=== PATIENT | male | born 1935 | race Caucasian/White ===

== ENCOUNTER 2018-07-17 22:45 | Inpatient (IN) | payer MEDICARE ==
[~2018-07-17] VITALS: Ht 172.7 cm; Wt 97.7 kg
[~2018-07-17 22:45] MED LIST: ALLO300 PO; ASPI81CH PO; ATEN25 PO; ATOR10 PO; CHOL10002 PO; DONE10 PO; FAMO20 PO; FEXO180 PO; FISH1000 PO; LOVA40 PO
[2018-07-17] MEDS ORDERED: WARF6 PO (23:01)
[2018-07-17] MEDS ORDERED: AMLO5 PO (23:01)
[2018-07-17] MEDS ORDERED: LOSA50 PO (23:03)
[2018-07-17] MEDS ORDERED: BREO ELLIPTA 11 EACH INH (23:04)
[2018-07-17 23:11] LABS: Hematocrit 47.3 % (37.0-53.0); Hemoglobin 15.6 g/dL (13.5-17.5); Mean Corpuscular HGB 29.8 pg (26.0-34.0); Mean Corpuscular Volume 90 fL (80-100); Platelet Count 261 K/mm3 (150-400); RDW Coefficient Variation 14.6 % (11.7-14.2); RDW Standard Deviation 48.3 fL (35.1-46.3); Red Blood Cell Count 5.23 M/mm3 (4.30-5.90); White Blood Cell Count 33.72 K/mm3 (4.00-11.30)
[2018-07-17 23:27] LABS: International Normalized Ratio 1.99; Prothrombin Time Results 19.7 Sec (9.7-11.5)
[2018-07-17 23:30] LABS: Albumin, Blood 3.4 g/dL (3.4-5.0); Albumin/Globulin Ratio 0.8 (0.8-1.8); Bilirubin, Total 2.9 mg/dL (0.1-1.0); Bun/Creatinine Ratio 19.9 (12.0-20.0); Calcium, Blood 8.7 mg/dL (8.5-10.1); Creatinine, Blood 1.56 mg/dL (0.60-1.20); Potassium, Blood 3.6 mmol/L (3.5-5.5); Total Protein, Blood 7.4 g/dL (6.4-8.2)
[2018-07-17 23:31] LABS: BAND PERCENT MAN 14 % (0-8); BASOPHILS ABSOLUTE MAN 0.33 K/mm3 (0.00-0.23); BASOPHILS PERCENT MAN 1 % (0-2); EOSINOPHILS PERCENT MAN 0 % (0-6); LYMPHOCYTES ABSOLUTE MAN 2.36 K/mm3 (0.84-5.20); LYMPHOCYTES PERCENT MAN 7 % (21-46); MONOCYTES ABSOLUTE MAN 1.68 K/mm3 (0.16-1.47); MONOCYTES PERCENT MAN 5 % (4-13); NEUTROPHILS ABSOLUTE MAN 29.33 K/mm3 (1.96-9.15); SEG NEUTROPHILS PERCENT MAN 73 % (41-73); TOTAL CELLS COUNTED 100
[2018-07-18] MEDS ORDERED: NITR.4SL SL (01:15)
[2018-07-18] MEDS ORDERED: CENTRUM SILVER1 EAC2 PO (01:16)
[2018-07-18 02:07] LABS: Influenza A Negative (NEGATIVE); Influenza B Negative (NEGATIVE)
[2018-07-18 04:11] LABS: Hematocrit 42.2 % (37.0-53.0); Hemoglobin 13.8 g/dL (13.5-17.5); Mean Corpuscular HGB 29.9 pg (26.0-34.0); Mean Corpuscular HGB Conc 32.7 g/dL (31.5-36.5); Mean Corpuscular Volume 92 fL (80-100); Mean Platelet Volume 11.9 fL (9.1-12.4); Platelet Count 229 K/mm3 (150-400); RDW Coefficient Variation 14.6 % (11.7-14.2); Red Blood Cell Count 4.61 M/mm3 (4.30-5.90); White Blood Cell Count 29.78 K/mm3 (4.00-11.30)
[2018-07-18 04:24] LABS: International Normalized Ratio 2.06; Prothrombin Time Results 20.4 Sec (9.7-11.5)
[2018-07-18 04:39] LABS: Albumin, Blood 2.7 g/dL (3.4-5.0); Albumin/Globulin Ratio 0.7 (0.8-1.8); Bilirubin, Total 2.4 mg/dL (0.1-1.0); Bun/Creatinine Ratio 21.1 (12.0-20.0); Calcium, Blood 7.7 mg/dL (8.5-10.1); Creatinine, Blood 1.42 mg/dL (0.60-1.20); Globulin, Blood 3.7 g/dL (2.2-4.0); Potassium, Blood 3.5 mmol/L (3.5-5.5); Total Protein, Blood 6.4 g/dL (6.4-8.2)
[2018-07-18 15:40] LABS: Source, Urine Clean Catch
[2018-07-18 17:34] LABS: Appearance, Urine Clear (Clear); Bilirubin, Urine Neg (Neg); Blood, Urine Neg (Neg); Color, Urine Yellow (P-Yellow); Glucose Qualitative, Urine Neg (Neg); Ketones, Urine Neg (Neg); Leukocyte Esterase, Urine Neg (Neg); Nitrite, Urine Neg (Neg); Protein, Urine 3+ (Neg); Urobilinogen, Urine NORM (Normal)
[2018-07-18 17:45] LABS: Bacteria Rare /hpf; Red Blood Cells, Urine Not Seen /hpf (0-2); Squamous Epithelial Cells Rare /hpf (Few); White Blood Cells, Urine 0-2 /hpf (0-5)
[2018-07-19 04:56] LABS: BASOPHILS ABSOLUTE AUTO 0.04 K/mm3 (0.00-0.23); BASOPHILS PERCENT AUTO 0 % (0-2); EOSINOPHILS PERCENT AUTO 0 % (0-6); Hematocrit 42.2 % (37.0-53.0); Hemoglobin 13.7 g/dL (13.5-17.5); IMMATURE GRAN ABSOLUTE AUTO 0.29 K/mm3 (0.00-0.10); IMMATURE GRAN PERCENT AUTO 1 % (0-1); LYMPHOCYTES ABSOLUTE AUTO 1.02 K/mm3 (0.84-5.20); LYMPHOCYTES PERCENT AUTO 4 % (21-46); MONOCYTES ABSOLUTE AUTO 0.66 K/mm3 (0.16-1.47); MONOCYTES PERCENT AUTO 3 % (4-13); Mean Corpuscular HGB 29.6 pg (26.0-34.0); Mean Corpuscular HGB Conc 32.5 g/dL (31.5-36.5); Mean Corpuscular Volume 91 fL (80-100); Mean Platelet Volume 11.4 fL (9.1-12.4); NEUTROPHILS ABSOLUTE AUTO 21.32 K/mm3 (1.96-9.15); NEUTROPHILS PERCENT AUTO 91 % (41-73); Platelet Count 204 K/mm3 (150-400); RDW Coefficient Variation 14.7 % (11.7-14.2); RDW Standard Deviation 49.5 fL (35.1-46.3); Red Blood Cell Count 4.63 M/mm3 (4.30-5.90); White Blood Cell Count 23.33 K/mm3 (4.00-11.30)
[2018-07-19 05:06] LABS: International Normalized Ratio 1.73; Prothrombin Time Results 17.3 Sec (9.7-11.5)
[2018-07-19 05:23] LABS: Alanine Aminotransfer (ALT/SGP 24 U/L (12-78); Albumin, Blood 2.8 g/dL (3.4-5.0); Albumin/Globulin Ratio 0.7 (0.8-1.8); Alk Phos 62 U/L (50-136); Anion Gap 9 mmol/L (6-16); Aspartate Aminotrans (AST/SGOT 25 U/L (12-37); Blood Urea Nitrogen 32 mg/dL (8-24); Bun/Creatinine Ratio 26.2 (12.0-20.0); CO2, Blood 20 mmol/L (21-32); Calcium, Blood 8.6 mg/dL (8.5-10.1); Chloride, Blood 113 mmol/L (98-108); Creatinine, Blood 1.22 mg/dL (0.60-1.20); Glomerular Filtration Rate >60 (60-); Glucose, Blood 143 mg/dL (70-99); Sodium, Blood 142 mmol/L (136-145); Total Protein, Blood 6.8 g/dL (6.4-8.2)
[2018-07-19 11:00] LABS: Alanine Aminotransfer (ALT/SGP 26 U/L (12-78); Albumin, Blood 2.7 g/dL (3.4-5.0); Albumin/Globulin Ratio 0.6 (0.8-1.8); Alk Phos 55 U/L (50-136); Anion Gap 10 mmol/L (6-16); Aspartate Aminotrans (AST/SGOT 26 U/L (12-37); Bilirubin, Total 0.7 mg/dL (0.1-1.0); Blood Urea Nitrogen 32 mg/dL (8-24); Bun/Creatinine Ratio 29.6 (12.0-20.0); CO2, Blood 20 mmol/L (21-32); Calcium, Blood 9.1 mg/dL (8.5-10.1); Chloride, Blood 111 mmol/L (98-108); Creatinine, Blood 1.08 mg/dL (0.60-1.20); Globulin, Blood 4.2 g/dL (2.2-4.0); Glomerular Filtration Rate >60 (60-); Glucose, Blood 177 mg/dL (70-99); Potassium, Blood 3.8 mmol/L (3.5-5.5); Sodium, Blood 141 mmol/L (136-145); Total Protein, Blood 6.9 g/dL (6.4-8.2)
[2018-07-20 05:27] LABS: BASOPHILS ABSOLUTE AUTO 0.03 K/mm3 (0.00-0.23); BASOPHILS PERCENT AUTO 0 % (0-2); EOSINOPHILS ABSOLUTE AUTO 0.03 K/mm3 (0.00-0.68); EOSINOPHILS PERCENT AUTO 0 % (0-6); Hematocrit 42.5 % (37.0-53.0); Hemoglobin 13.9 g/dL (13.5-17.5); IMMATURE GRAN PERCENT AUTO 1 % (0-1); LYMPHOCYTES ABSOLUTE AUTO 1.59 K/mm3 (0.84-5.20); LYMPHOCYTES PERCENT AUTO 9 % (21-46); MONOCYTES ABSOLUTE AUTO 0.67 K/mm3 (0.16-1.47); MONOCYTES PERCENT AUTO 4 % (4-13); Mean Corpuscular HGB 30.2 pg (26.0-34.0); Mean Corpuscular HGB Conc 32.7 g/dL (31.5-36.5); Mean Corpuscular Volume 92 fL (80-100); Mean Platelet Volume 12.1 fL (9.1-12.4); NEUTROPHILS ABSOLUTE AUTO 14.89 K/mm3 (1.96-9.15); NEUTROPHILS PERCENT AUTO 86 % (41-73); Platelet Count 254 K/mm3 (150-400); RDW Coefficient Variation 14.8 % (11.7-14.2); RDW Standard Deviation 50.6 fL (35.1-46.3); White Blood Cell Count 17.41 K/mm3 (4.00-11.30)
[2018-07-20 05:39] LABS: International Normalized Ratio 1.8; Prothrombin Time Results 17.9 Sec (9.7-11.5)
[2018-07-20] MEDS ORDERED: LEVO750 PO (11:59)
[2018-07-20] MEDS ORDERED: GUAIFENESIN ER600 MG PO (12:00)
[2018-07-20] MEDS ORDERED: WARF3 PO (12:13)
== END 2018-07-20 12:25 | disposition home or self-care (01) | DRG 871 ==
LOC: ER 22:45 → PCU 07-18 00:12 → MEDS 07-18 00:36 → PCU 07-18 00:42 → MEDS 07-19 23:08 → ENPENDDIS 07-20 10:00 → MEDS 07-20 12:25
PROVIDERS: Emergency Medicine; Internal Medicine
DX: A41.9 Sepsis, unspecified organism (principal); J18.9 Pneumonia, unspecified organism; N17.9 Acute kidney failure, unspecified; J44.1 Chronic obstructive pulmonary disease with (acute) exacerbation; J44.0 Chronic obstructive pulmonary disease with (acute) lower respiratory infection; R65.20 Severe sepsis without septic shock; F03.90 Unspecified dementia, unspecified severity, without behavioral disturbance, psychotic disturbance, mood disturbance, and anxiety; I25.10 Atherosclerotic heart disease of native coronary artery without angina pectoris; I12.9 Hypertensive chronic kidney disease with stage 1 through stage 4 chronic kidney disease, or unspecified chronic kidney disease; N18.9 Chronic kidney disease, unspecified; K21.9 Gastro-esophageal reflux disease without esophagitis; E78.5 Hyperlipidemia, unspecified; G47.30 Sleep apnea, unspecified; I48.2 Chronic atrial fibrillation; Z66 Do not resuscitate; Z95.1 Presence of aortocoronary bypass graft; Z79.01 Long term (current) use of anticoagulants; Z79.82 Long term (current) use of aspirin; Z79.899 Other long term (current) drug therapy; Z88.0 Allergy status to penicillin; Z87.891 Personal history of nicotine dependence
CPT/HCPCS: 36415; 71046; 80053; 81001; 83605; 85025; 85027; 85610; 85730; 87070; 87205; 87804; 92610; 93005; 93010; 94640; 94762; 96365; 97116; 97161; 99285-25; G8978; G8979; G8980; G8996; G8997; G8998; J0696; J1650; J1956; J2930; J7030; J7050

== ENCOUNTER 2018-11-04 20:29 | Emergency (ER) | payer MEDICARE ==
[~2018-11-04] VITALS: Ht 172.7 cm; Wt 90.7 kg
[~2018-11-04 20:29] MED LIST changes: +AMLO5 PO; +BREO ELLIPTA 11 EACH INH; +CENTRUM SILVER1 EAC2 PO; +GUAIFENESIN ER600 MG PO; +LEVO750 PO; +LOSA50 PO; +NITR.4SL SL; +WARF3 PO; +WARF6 PO
[2018-11-04 21:06] LABS: BASOPHILS ABSOLUTE AUTO 0.04 K/mm3 (0.00-0.23); BASOPHILS PERCENT AUTO 1 % (0-2); EOSINOPHILS PERCENT AUTO 0 % (0-6); Hematocrit 51.5 % (37.0-53.0); Hemoglobin 16.5 g/dL (13.5-17.5); IMMATURE GRAN PERCENT AUTO 1 % (0-1); LYMPHOCYTES ABSOLUTE AUTO 1.25 K/mm3 (0.84-5.20); LYMPHOCYTES PERCENT AUTO 15 % (21-46); MONOCYTES ABSOLUTE AUTO 0.74 K/mm3 (0.16-1.47); MONOCYTES PERCENT AUTO 9 % (4-13); Mean Corpuscular HGB 29.6 pg (26.0-34.0); Mean Corpuscular Volume 92 fL (80-100); Mean Platelet Volume 10.7 fL (9.1-12.4); NEUTROPHILS ABSOLUTE AUTO 6.46 K/mm3 (1.96-9.15); NEUTROPHILS PERCENT AUTO 75 % (41-73); Platelet Count 258 K/mm3 (150-400); RDW Coefficient Variation 14.6 % (11.7-14.2); RDW Standard Deviation 50.3 fL (35.1-46.3); Red Blood Cell Count 5.58 M/mm3 (4.30-5.90); White Blood Cell Count 8.59 K/mm3 (4.00-11.30)
[2018-11-04 21:19] LABS: International Normalized Ratio 1.34; Prothrombin Time Results 13.6 Sec (9.7-11.5)
[2018-11-04 21:29] LABS: Albumin, Blood 3.6 g/dL (3.4-5.0); Albumin/Globulin Ratio 0.8 (0.8-1.8); Bilirubin, Total 1.1 mg/dL (0.1-1.0); Bun/Creatinine Ratio 15.6 (12.0-20.0); Calcium, Blood 8.2 mg/dL (8.5-10.1); Creatinine, Blood 1.35 mg/dL (0.60-1.20); Globulin, Blood 4.4 g/dL (2.2-4.0); Potassium, Blood 3.6 mmol/L (3.5-5.5)
[2018-11-05 00:13] LABS: Appearance, Urine Clear (Clear); Bilirubin, Urine Neg (Neg); Blood, Urine 1+ (Neg); Color, Urine Amber (P-Yellow); Glucose Qualitative, Urine Neg (Neg); Ketones, Urine Neg (Neg); Leukocyte Esterase, Urine Neg (Neg); Nitrite, Urine Neg (Neg); Protein, Urine 4+ (Neg); Source, Urine Clean Catch; Urobilinogen, Urine NORM (Normal)
[2018-11-05 00:19] LABS: Red Blood Cells, Urine 0-2 /hpf (0-2)
[2018-11-05 00:20] LABS: Amorphous Light (0-Heavy); Bacteria Few /hpf; Mucus Light (0-Heavy); Squamous Epithelial Cells Rare /hpf (Few)
[2018-11-05] MEDS ORDERED: Zithromax250 MG PO (00:23)
== END 2018-11-05 00:46 | disposition home or self-care (01) ==
LOC: ER 20:29
PROVIDERS: Emergency Medicine
DX: J40 Bronchitis, not specified as acute or chronic (principal); N28.9 Disorder of kidney and ureter, unspecified; W19.XXXA Unspecified fall, initial encounter; Z88.0 Allergy status to penicillin; Z79.899 Other long term (current) drug therapy; Z79.82 Long term (current) use of aspirin; Z79.01 Long term (current) use of anticoagulants; J45.909 Unspecified asthma, uncomplicated; Z95.1 Presence of aortocoronary bypass graft
CPT/HCPCS: 36415; 70450; 71046; 80053; 81001; 85025; 85610; 93005; 93010; 96360; 99284-25; J7030

== ENCOUNTER 2018-12-08 17:15 | Emergency (ER) | payer MEDICARE ==
[~2018-12-08] VITALS: Ht 172.7 cm; Wt 97.1 kg
[~2018-12-08 17:15] MED LIST changes: +Zithromax250 MG PO
[2018-12-08 18:00] LABS: BASOPHILS ABSOLUTE AUTO 0.08 K/mm3 (0.00-0.23); BASOPHILS PERCENT AUTO 1 % (0-2); EOSINOPHILS ABSOLUTE AUTO 0.13 K/mm3 (0.00-0.68); EOSINOPHILS PERCENT AUTO 1 % (0-6); Hematocrit 44.2 % (37.0-53.0); Hemoglobin 14.4 g/dL (13.5-17.5); IMMATURE GRAN ABSOLUTE AUTO 0.11 K/mm3 (0.00-0.10); IMMATURE GRAN PERCENT AUTO 1 % (0-1); LYMPHOCYTES ABSOLUTE AUTO 2.03 K/mm3 (0.84-5.20); LYMPHOCYTES PERCENT AUTO 17 % (21-46); MONOCYTES PERCENT AUTO 12 % (4-13); Mean Corpuscular HGB 29.1 pg (26.0-34.0); Mean Corpuscular HGB Conc 32.6 g/dL (31.5-36.5); Mean Corpuscular Volume 89 fL (80-100); Mean Platelet Volume 11.4 fL (9.1-12.4); NEUTROPHILS ABSOLUTE AUTO 8.03 K/mm3 (1.96-9.15); NEUTROPHILS PERCENT AUTO 68 % (41-73); Platelet Count 252 K/mm3 (150-400); RDW Coefficient Variation 14.7 % (11.7-14.2); Red Blood Cell Count 4.95 M/mm3 (4.30-5.90); White Blood Cell Count 11.78 K/mm3 (4.00-11.30)
[2018-12-08 18:14] LABS: Albumin, Blood 3.1 g/dL (3.4-5.0); Albumin/Globulin Ratio 0.8 (0.8-1.8); Bilirubin, Total 1.2 mg/dL (0.1-1.0); Bun/Creatinine Ratio 17.3 (12.0-20.0); Calcium, Blood 8.4 mg/dL (8.5-10.1); Creatinine, Blood 1.27 mg/dL (0.60-1.20); Globulin, Blood 3.9 g/dL (2.2-4.0); Potassium, Blood 3.6 mmol/L (3.5-5.5); Troponin I 0.042 ng/mL (0.000-0.040)
[2018-12-08 18:26] LABS: International Normalized Ratio 1.37; Prothrombin Time Results 14.1 Sec (9.7-11.5)
[2018-12-08 18:44] LABS: Influenza A Negative (NEGATIVE); Influenza B Negative (NEGATIVE)
[2018-12-08 18:57] LABS: Source, Urine Clean Catch
[2018-12-08 19:02] LABS: Bilirubin, Urine Neg (Neg); Blood, Urine 1+ (Neg); Glucose Qualitative, Urine Neg (Neg); Ketones, Urine Neg (Neg); Leukocyte Esterase, Urine Neg (Neg); Nitrite, Urine Neg (Neg); Protein, Urine 3+ (Neg); Urobilinogen, Urine NORM (Normal)
[2018-12-08 19:10] LABS: Appearance, Urine Clear (Clear); Color, Urine Yellow (P-Yellow)
[2018-12-08 19:11] LABS: Bacteria Mod /hpf; Mucus Light (0-Heavy); Red Blood Cells, Urine 0-2 /hpf (0-2); Squamous Epithelial Cells Not Seen /hpf (Few)
[2018-12-08] MEDS ORDERED: Zithromax250 MG PO (22:02)
== END 2018-12-08 22:22 | disposition home or self-care (01) ==
LOC: ER 17:15
PROVIDERS: Emergency Medicine
DX: J44.1 Chronic obstructive pulmonary disease with (acute) exacerbation (principal); Z88.0 Allergy status to penicillin; Z79.899 Other long term (current) drug therapy; Z79.82 Long term (current) use of aspirin; Z79.01 Long term (current) use of anticoagulants; Z87.891 Personal history of nicotine dependence
CPT/HCPCS: 70450; 71046; 80053; 81001; 84484; 85025; 85610; 87086; 87804; 93005; 93010; 94640; 99285-25

== ENCOUNTER → 2018-12-11 | Outpatient (CLI) | payer MEDICARE | END | disposition home or self-care (01) | LOC: LAB 08:00 → LAB SHORT 08:00 | DX: R05 Cough (principal) | CPT/HCPCS: 87070; 87205 ==

== ENCOUNTER → 2021-11-01 | Outpatient (CLI) | payer MEDICARE ==
[2021-11-01 08:55] LABS: Source, Urine Clean Catch
[2021-11-01 13:07] LABS: Appearance, Urine Clear (Clear); Bilirubin, Urine Neg (Neg); Blood, Urine Neg (Neg); Color, Urine Yellow (P-Yellow); Glucose Qualitative, Urine Neg (Neg); Ketones, Urine Neg (Neg); Leukocyte Esterase, Urine Neg (Neg); Nitrite, Urine Neg (Neg); Protein, Urine 3+ (Neg); Specific Gravity, Urine 1.015 (1.003-1.022); Urobilinogen, Urine NORM (Normal)
[2021-11-01 13:38] LABS: Bacteria Few /hpf; Red Blood Cells, Urine 0-2 /hpf (0-2); Squamous Epithelial Cells Few /hpf (Few); White Blood Cells, Urine 0-2 /hpf (0-5)
== END | disposition home or self-care (01) ==
LOC: LAB SHORT 08:52 → LAB 08:52
PROVIDERS: Internal Medicine
DX: N39.46 Mixed incontinence (principal)
CPT/HCPCS: 81001

== ENCOUNTER 2022-03-02 21:50 | Emergency (ER) | payer MEDICARE ==
[~2022-03-02] VITALS: Ht 172.7 cm; Wt 77.1 kg
[2022-03-02 22:22] LABS: Hematocrit 42.5 % (37.0-53.0); Mean Corpuscular HGB Conc 32.9 g/dL (31.5-36.5); Mean Corpuscular Volume 91 fL (80-100); Platelet Count 434 K/mm3 (150-400); RDW Coefficient Variation 13.8 % (11.7-14.2); RDW Standard Deviation 46.5 fL (35.1-46.3); Red Blood Cell Count 4.66 M/mm3 (4.30-5.90); White Blood Cell Count 13.97 K/mm3 (4.00-11.30)
[2022-03-02 22:43] LABS: Albumin, Blood 2.8 g/dL (3.4-5.0); Albumin/Globulin Ratio 0.6 (0.8-1.8); Bilirubin, Total 1.4 mg/dL (0.1-1.0); Bun/Creatinine Ratio 20.2 (12.0-20.0); Creatinine, Blood 1.29 mg/dL (0.60-1.20); Globulin, Blood 4.4 g/dL (2.2-4.0); Potassium, Blood 3.9 mmol/L (3.5-5.5); Total Protein, Blood 7.2 g/dL (6.4-8.2)
[2022-03-02 22:47] LABS: BAND PERCENT MAN 10 % (0-8); BASOPHILS PERCENT MAN 0 % (0-2); EOSINOPHILS ABSOLUTE MAN 0.27 K/mm3 (0.00-0.68); EOSINOPHILS PERCENT MAN 2 % (0-6); LYMPHOCYTES ABSOLUTE MAN 1.67 K/mm3 (0.84-5.20); LYMPHOCYTES PERCENT MAN 12 % (21-46); METAMYELOCYTE ABSOLUTE MAN 0.13 K/mm3 (0.00-0.00); METAMYELOCYTE PERCENT MAN 1 % (0-0); MONOCYTES ABSOLUTE MAN 1.25 K/mm3 (0.16-1.47); MONOCYTES PERCENT MAN 9 % (4-13); MYELOCYTE ABSOLUTE MAN 0.27 K/mm3 (0.00-0.00); MYELOCYTE PERCENT MAN 2 % (0-0); NEUTROPHILS ABSOLUTE MAN 10.33 K/mm3 (1.96-9.15); SEG NEUTROPHILS PERCENT MAN 64 % (41-73); TOTAL CELLS COUNTED 100
[2022-03-02 23:43] LABS: Influenza A, PCR NEGATIVE (NEGATIVE); Influenza B, PCR NEGATIVE (NEGATIVE); Resp Syncytial Virus, PCR NEGATIVE (NEGATIVE); SARS-Cov-2 (COVID-19) PCR, MMC NEGATIVE (NEGATIVE)
[2022-03-03] MEDS ORDERED: DELTASONE20 MG PO (00:04)
[2022-03-03] MEDS ORDERED: Zithromax250 MG PO (00:04)
== END 2022-03-03 00:39 | disposition home or self-care (01) ==
LOC: ER 21:50
PROVIDERS: Emergency Medicine
DX: J44.9 Chronic obstructive pulmonary disease, unspecified (principal); Z20.822 Contact with and (suspected) exposure to COVID-19; Z88.0 Allergy status to penicillin; Z79.899 Other long term (current) drug therapy; Z79.82 Long term (current) use of aspirin; Z79.01 Long term (current) use of anticoagulants; Z95.1 Presence of aortocoronary bypass graft
CPT/HCPCS: 0241U; 36415; 71045; 80053; 85025; 93005; 93010; A9270; J7512

== ENCOUNTER 2022-06-03 10:09 | Inpatient (IN) | payer MEDICARE ==
[~2022-06-03] VITALS: Ht 177.8 cm; Wt 100.9 kg
[~2022-06-03 10:09] MED LIST changes: +DELTASONE20 MG PO
[2022-06-03 11:52] LABS: International Normalized Ratio 2.29; Prothrombin Time Results 22.8 Sec (9.7-11.5)
[2022-06-03 14:03] LABS: BASOPHILS ABSOLUTE AUTO 0.11 K/mm3 (0.00-0.23); BASOPHILS PERCENT AUTO 1 % (0-2); EOSINOPHILS ABSOLUTE AUTO 0.12 K/mm3 (0.00-0.68); EOSINOPHILS PERCENT AUTO 1 % (0-6); Hematocrit 42.8 % (37.0-53.0); Hemoglobin 13.9 g/dL (13.5-17.5); IMMATURE GRAN ABSOLUTE AUTO 0.14 K/mm3 (0.00-0.10); IMMATURE GRAN PERCENT AUTO 1 % (0-1); LYMPHOCYTES ABSOLUTE AUTO 2.08 K/mm3 (0.84-5.20); LYMPHOCYTES PERCENT AUTO 13 % (21-46); MONOCYTES ABSOLUTE AUTO 1.24 K/mm3 (0.16-1.47); MONOCYTES PERCENT AUTO 8 % (4-13); Mean Corpuscular HGB 30.5 pg (26.0-34.0); Mean Corpuscular HGB Conc 32.5 g/dL (31.5-36.5); Mean Corpuscular Volume 94 fL (80-100); NEUTROPHILS PERCENT AUTO 77 % (41-73); Platelet Count 334 K/mm3 (150-400); RDW Coefficient Variation 14.6 % (11.7-14.2); RDW Standard Deviation 50.4 fL (35.1-46.3); Red Blood Cell Count 4.56 M/mm3 (4.30-5.90); White Blood Cell Count 15.79 K/mm3 (4.00-11.30)
[2022-06-03 14:15] LABS: Albumin, Blood 3.7 g/dL (3.4-5.0); Bilirubin, Total 1.7 mg/dL (0.1-1.0); Calcium, Blood 9.6 mg/dL (8.5-10.1); Creatinine, Blood 1.07 mg/dL (0.60-1.20); Globulin, Blood 3.7 g/dL (2.2-4.0); Potassium, Blood 4.6 mmol/L (3.5-5.5); Total Protein, Blood 7.4 g/dL (6.4-8.2)
[2022-06-03 14:27] LABS: Source, Urine Straight Cath
[2022-06-03 14:30] LABS: Appearance, Urine Clear (Clear); Bilirubin, Urine Neg (Neg); Blood, Urine Neg (Neg); Color, Urine Amber (P-Yellow); Glucose Qualitative, Urine Neg (Neg); Ketones, Urine Neg (Neg); Leukocyte Esterase, Urine Neg (Neg); Nitrite, Urine Neg (Neg); Protein, Urine 3+ (Neg); Urobilinogen, Urine NORM (Normal)
[2022-06-03 14:36] LABS: Red Blood Cells, Urine 0-2 /hpf (0-2); White Blood Cells, Urine 0-2 /hpf (0-5)
[2022-06-03 14:37] LABS: Bacteria Rare /hpf; Renal Epithelial Rare /hpf (0-Rare); Squamous Epithelial Cells Not Seen /hpf (Few)
[2022-06-03 15:01] LABS: Influenza A, PCR NEGATIVE (NEGATIVE); Influenza B, PCR NEGATIVE (NEGATIVE); Resp Syncytial Virus, PCR NEGATIVE (NEGATIVE); SARS-Cov-2 (COVID-19) PCR, MMC NEGATIVE (NEGATIVE)
[2022-06-03] MEDS ORDERED: MEMA5TAB PO (18:16)
--- NOTE | 2022-06-03 19:51 | NUR ---
END OF SHIFT SUMMARY: PATIENT ARRIVED TO UNIT VIA GURNEY AT 1730. TWO OF PATIENT'S DAUGHTERS WERE AT BEDSIDE. PATIENT ALERT TO SELF AND FAMILY ONLY. PATIENT IS [place]. PATIENT HAS A SHORT ATTENTION SPAN. PATIENT ABLE TO FOLLOW MOST SIMPLE COMMANDS. PATIENT OCCASIONALLY MOVING HIS ARMS/HANDS THOUGH GRASPING IN THE AIR FOR SOMETHING. PATIENT DENIES VISUAL HALLUCINATIONS. PATIENT'S DAUGHTER REPORTS THAT HE DID HAVE SOME VISUAL HALLUCINATIONS YESTERDAY AT HOME. PATIENT HAS A DRY COUGH AND AUDIBLE COARSENESS OF HIS LUNGS. PATIENT STABLE ON RA. PATIENT ABLE TO SWALLOW WITHOUT ANY APPARENT DIFFICULTIES. PATIENT'S DAUGHTERS REPORT THAT THE PATIENT STARTED DEMONSTRATING COGNITIVE DECLINE OR INCREASED CONFUSION 2 WEEKS AGO, BUT THAT HIS CONFUSION TODAY IS CLEARLY THE WORST IT HAS BEEN.
--- NOTE | 2022-06-04 00:21 | NUR ---
AGITATED/AGRESSIVE *LATE ENTRY* AROUND 2021 ON 06/03/22 THIS NURSE AND SECURITY SYSTEM ENGINEER TRINA Gomez, WENT INTO PT RM TO GET VITALS & GIVE MEDS. AT FIRST PT COOPERATIVE IN ALLOWING VITALS, BUT THEN BECAME AGRESSIVE, CURSING, YELLING, AGITATED TOWARDS MYSELF AND SECURITY SYSTEM ENGINEER, TELLING US TO LEAVE & "GET OFF MY PROPERTY" & SWINGING ARMS TRYING TO HIT US BOTH. PT ALSO TRYING TO PULL OUT IV & PULLING AT TELE, ABLE TO WRAP IV c COBAN TO SECURE. PT HALLUCINATING STATING THAT THIS NURSE SHOULD JUMP IN THE RIVER @THE END OF HIS BED. ATTEMPTED TO GIVE PO SEROQUEL & PT REFUSED ANY PO MEDS. ANOTHER NURSE CHRISTOFER Vazquez ATTEMPTED TO GIVE PO SEROQUEL & PT SPIT MEDICATION OUT. INFORMED [id number] Vazquez OF PTS BEHAVIOR & RISK OF PULLING OUT SAMUEL, IV & HE ORDERED WRIST, GALILEO RESTRAINTS & IM ZYPREXA. INFORMED DAUGHTER OF PTS BEHAVIOUR. WILL CONT TO MONITOR.
[2022-06-04 05:16] LABS: BASOPHILS ABSOLUTE AUTO 0.11 K/mm3 (0.00-0.23); BASOPHILS PERCENT AUTO 1 % (0-2); EOSINOPHILS PERCENT AUTO 2 % (0-6); Hematocrit 39.7 % (37.0-53.0); Hemoglobin 12.7 g/dL (13.5-17.5); IMMATURE GRAN PERCENT AUTO 1 % (0-1); LYMPHOCYTES ABSOLUTE AUTO 2.06 K/mm3 (0.84-5.20); LYMPHOCYTES PERCENT AUTO 16 % (21-46); MONOCYTES ABSOLUTE AUTO 1.25 K/mm3 (0.16-1.47); MONOCYTES PERCENT AUTO 10 % (4-13); Mean Corpuscular HGB 30.5 pg (26.0-34.0); Mean Corpuscular Volume 95 fL (80-100); Mean Platelet Volume 10.9 fL (9.1-12.4); NEUTROPHILS ABSOLUTE AUTO 9.31 K/mm3 (1.96-9.15); NEUTROPHILS PERCENT AUTO 72 % (41-73); Platelet Count 306 K/mm3 (150-400); RDW Coefficient Variation 14.8 % (11.7-14.2); RDW Standard Deviation 51.5 fL (35.1-46.3); Red Blood Cell Count 4.16 M/mm3 (4.30-5.90); White Blood Cell Count 13.03 K/mm3 (4.00-11.30)
[2022-06-04 05:30] LABS: International Normalized Ratio 2.55; Prothrombin Time Results 25.2 Sec (9.7-11.5)
[2022-06-04 05:50] LABS: Albumin, Blood 3.1 g/dL (3.4-5.0); Albumin/Globulin Ratio 0.9 (0.8-1.8); Bilirubin, Total 1.4 mg/dL (0.1-1.0); Bun/Creatinine Ratio 22.8 (12.0-20.0); Calcium, Blood 8.9 mg/dL (8.5-10.1); Creatinine, Blood 1.14 mg/dL (0.60-1.20); Globulin, Blood 3.6 g/dL (2.2-4.0); Potassium, Blood 4.1 mmol/L (3.5-5.5); Total Protein, Blood 6.7 g/dL (6.4-8.2)
--- NOTE | 2022-06-04 06:24 | NUR ---
SHIFT SUMMARY AOXSELF ONLY. NONCOOPERATIVE, AGITATED, UNABLE TO FOLLOW DIRECTIONS, AGRESSIVE TOWARDS STAFF WHEN ATTEMPTING CARE. TRYS TO HIT, YELLS AT STAFF TO "GET OUT OF HERE" THINKS HE IS AT HOME. PT CALM & RELAXED WHEN NOONE IN RM OR NEEDING TO PROVIDE CARE. VSS. TELE AFIB c PVC HR 66. SAMUEL PATENT & DRAINING DARK YELLOW URINE. MEPILEX PLACED TO R FOREARM. GALILEO & WRIST RESTRAINTS ON FOR PT & STAFF SAFETY. CALL LIGHT & BED ALARM IN PLACE.
--- NOTE | 2022-06-04 11:17 | NUR ---
SWALLOWING: PATIENT IS HAVING DIFFICULTY FORMING WORDS AT TIMES THIS MORNING. HE HAS A WET COUGH. PATIENT HAD SOME COUGHING WITH SMALL BITES OF BREAKFAST. DISCUSSED WITH DR. VALDEZ. MORNING MEDICATIONS HELD AND SPEECH EVALUATION ORDERED.
--- NOTE | 2022-06-04 20:06 | NUR ---
END OF SHIFT SUMMARY: PATIENT STARTED OFF THE DAY CALM AND QUIET. PATIENT REPORTED THAT HE FELT "WONDERFUL" TO THE NURSE. PATIENT UP TO THE CHAIR WITH PT AND OT. PATIENT REQUIRED A MAX ASSIST TO GET BACK TO BED FROM THE CHAIR. PATIENT UNABLE TO FOLLOW DIRECTIONS. THE DAY PROGRESSED PATIENT ALTERNATED BETWEEN IRRITABILITY AND CALM WITH THE STAFF. PATIENT'S CONFUSION INCREASED AT THE END OF SHIFT WITH THE PATIENT VERY IRRITABLE WITH STAFF. REPORTING THAT HE WOULD "PUNCH US" WHEN STAFF ATTEMPTED TO PROVIDE CARE. PATIENT STARTED THE SHIFT WITH A WET COUGH. PATIENT DID NOT PASS HIS SWALLOW EVALUATION. BY THE END OF THE SHIFT, THE WET COUGH SEEMED IMPROVED AND THE PATIENT WAS ABLE TO COUGH UP SOME THICK, YEBOAH SPUTUM. PATIENT DID NOT ATTEMPT TO GET OUT OF BED DURING THE SHIFT.
--- NOTE | 2022-06-05 01:37 | NUR ---
06/04/22 992 PT LYING IN BED, PT DOES NOT ANSWER QUESTIONS, HE IS AAO TO SELF ONLY, DOES NOT APPEAR TO BE IN ANY DISTRESS, NO GRIMACING, NO GAURDING, NO MOANING. TELE AFIB W/PVC'S AT 63. SAMUEL JAIR, CLOUDY, DRAINING WELL. PT HAS BRUISES ON R SIDE, SCABS AND BRUISES TO UE'S AND LE'S, SKIN TEARS TO SHINS, HEMATOMA TO R ELBOW. NO OTHER APPARENT SIGNS OF DISTRESS. CALL LIGHT IS I REACH.
--- NOTE | 2022-06-05 03:02 | NUR ---
0000 PT LYING IN BED, EYES CLOSED, APPEARS TO BE RESTING. BREATHING IS EVEN, UNLABORED. NO APPARENT SIGNS OF DISTRESS. CALL LIGHT IS IN REACH.
--- NOTE | 2022-06-05 03:03 | NUR ---
0200 PT LYING IN BED, EYES CLOSED, APPEARS TO BE RESTING. BREATHING IS EVEN, UNLABORED. NO APPARENT SIGNS OF DISTRESS. CALL LIGHT IS IN REACH.
--- NOTE | 2022-06-05 03:03 | NUR ---
PT LYING IN BED, EYES CLOSED, APPEARS TO BE RESTING. WAKES EASILY TO VERBAL STIMULI. NO APPARENT SIGNS OF DISTRESS. CALL LIGHT IS IN REACH.
[2022-06-05 05:31] LABS: International Normalized Ratio 3.99; Prothrombin Time Results 38.3 Sec (9.7-11.5)
--- NOTE | 2022-06-05 05:31 | NUR ---
PT IS AAO TO SELF ONLY. UNABLE TO GET PT TO ANSWER ANY QUESTIONS ABOUT DISCOMFORT, DID NOT APPEAR TO BE IN ANY DISCOMFORT FOR THIS SHIFT, UNLESS WE WERE ATTEMPTING TO DO SOMETHING FOR HIM AND THEN HE WOULD GET ANGRY. TELE AFIB W/BALDEMAR'S. LIZZIE JAIR AND CLOUDY. ON RA.
--- NOTE | 2022-06-05 05:33 | NUR ---
PT LYING IN BED, EYES CLOSED, APPEARS TO BE RESTING. BREATHING IS EVEN, UNLABORED. NO APPARENT SIGNS OF DISTRESS. CALL LIGHT IS IN REACH. NO OTHER CHANGES THIS SHIFT.
--- NOTE | 2022-06-05 14:45 | NUR ---
PAL CARE VISIT AND CASE CONF Brief visit at bedside this am, when forest at bedside. Reviewed his NPO status and brought her supplies to moisten his mouth per pt/forest request. Pt is more awake today but remains very forgetful and at his baseline confusion with dementia. Discussed significance of concerns for safe swallowing with forest. Case conferenced with RN, , PT. Concerns remain for truck terminal manager planning and placement. Pt will need additional care from family/hired CG if he is to return home or truck terminal manager placement in the community due to his progression with alzheimers and increasing risks for additional unattended falls/accidents at home. PT has touched on this with pt's forest today and yesterday. Will attempt to f/u also. ST aguilar reviewed this afternoon also. Pal Care to follow.
--- NOTE | 2022-06-05 18:15 | NUR ---
END OF SHIFT SUMMARY: PATIENT HAS IMPROVED MENTATION TODAY. PATIENT ANSWERING QUESTIONS IN FULL SENTENCES AND FOLLOWING DIRECTIONS. PATIENT CALM AND COOPERATIVE WITH CARE. PATIENT ORIENTED TO SELF AND FAMILY. PATIENT CONTINUES TO FIDGET WITH CARE SUPPLIES (FOR EXAMPLE: PULLED OFF ALL THE WOUND DRESSINGS ON HIS RIGHT ELBOW), BUT DID NOT ATTEMPT TO PULL OUT HIS IV OR SAMUEL. BLADDER TRAINING STARTED TODAY PER ORDERS. PATIENT EXPRESSED URGE TO VOID NEAR THE END OF THE CLAMPING PERIODS. PATIENT UP TO THE CHAIR MULTIPLE TIMES WITH PT AND OT. PATIENT DID NOT ATTEMPT TO GET OUT OF THE CHAIR HIMSELF. PATIENT HAS A SHORT SHUFFLE WITH FWW, GB AND TWO PERSON ASSIST.
--- NOTE | 2022-06-05 23:51 | NUR ---
2114 PT LYING IN BED, DENIES ANY DISCOMFORT AT THIS TIME. PT REFUSING MEDS. PT IS PULLING AT SAMUEL AND IV. WILL GIVE ZYPREXA AND EVAL FOR EFFECT. SAMUEL IS TEA COLORED AND CLEAR. CALL LIGHT IS IN REACH. 2132 APPLIED SOFT WRIST RESTRAINTS, WILL REEVALUATE AND MONITOR AND REMOVE RESTRAINTS WHEN PT IS CALMER AND NOT PULLING AT LINES.
--- NOTE | 2022-06-06 00:08 | NUR ---
PT LYING IN BED, EYES CLOSED, APPEARS TO BE RESTING. BREATHING IS EVEN, UNLABORED. BIOX IS BEEPING HIGH 80'S, PLACED 2L O2 NC ON PT, PT IS NOW LOW 90'S. NO OTHER APPARENT SIGNS OF DISTRESS. CALL LIGHT IS IN REACH.
--- NOTE | 2022-06-06 00:49 | NUR ---
06/05/22 2300 REMOVED SOFT WRIST RESTRAINTS. PT IS CALMER AND DOES NOT APPEAR TO BE PULLING AT LINES AT THIS TIME. PT DENIES NEED FOR ANYTHING AT THIS TIME. NO APPARENT SIGNS OF DISTRESS. CALL LIGHT IS IN REACH.
--- NOTE | 2022-06-06 02:11 | NUR ---
PT LYING IN BED, EYES CLOSED, APPEARS TO BE RESTING. BREATHING IS EVEN, UNLABORED. NO APPARENT SIGNS OF DISTRESS. PT NOT PULLING AT LINES AT THIS TIME. CALL LIGHT IS IN REACH. BED ALARM IS ON.
[2022-06-06 04:49] LABS: BASOPHILS ABSOLUTE AUTO 0.09 K/mm3 (0.00-0.23); BASOPHILS PERCENT AUTO 1 % (0-2); EOSINOPHILS ABSOLUTE AUTO 0.28 K/mm3 (0.00-0.68); EOSINOPHILS PERCENT AUTO 2 % (0-6); Hematocrit 38.2 % (37.0-53.0); Hemoglobin 12.4 g/dL (13.5-17.5); IMMATURE GRAN ABSOLUTE AUTO 0.12 K/mm3 (0.00-0.10); IMMATURE GRAN PERCENT AUTO 1 % (0-1); LYMPHOCYTES ABSOLUTE AUTO 1.71 K/mm3 (0.84-5.20); LYMPHOCYTES PERCENT AUTO 15 % (21-46); MONOCYTES ABSOLUTE AUTO 1.25 K/mm3 (0.16-1.47); MONOCYTES PERCENT AUTO 11 % (4-13); Mean Corpuscular HGB 30.8 pg (26.0-34.0); Mean Corpuscular HGB Conc 32.5 g/dL (31.5-36.5); Mean Corpuscular Volume 95 fL (80-100); Mean Platelet Volume 11.4 fL (9.1-12.4); NEUTROPHILS ABSOLUTE AUTO 8.17 K/mm3 (1.96-9.15); NEUTROPHILS PERCENT AUTO 70 % (41-73); Platelet Count 316 K/mm3 (150-400); RDW Coefficient Variation 14.4 % (11.7-14.2); RDW Standard Deviation 49.8 fL (35.1-46.3); Red Blood Cell Count 4.03 M/mm3 (4.30-5.90); White Blood Cell Count 11.62 K/mm3 (4.00-11.30)
[2022-06-06 05:12] LABS: Bun/Creatinine Ratio 26.5 (12.0-20.0); Calcium, Blood 8.6 mg/dL (8.5-10.1); Creatinine, Blood 0.94 mg/dL (0.60-1.20); Potassium, Blood 3.6 mmol/L (3.5-5.5)
[2022-06-06 05:28] LABS: International Normalized Ratio 4.75
--- NOTE | 2022-06-06 05:50 | NUR ---
0400 PT LYING IN BED, EYES CLOSED, APPEARS TO BE RESING. BREATHING IS EVEN, UNLABORED. NO APPARENT SIGNS OF DISTRESS. CALL LIGHT IS IN REACH.
--- NOTE | 2022-06-06 06:05 | NUR ---
PT AAO X 1, AGITATION DURING CARE BUT USUALLY CALM WHEN LEFT ALONE. ON RA. SAMUEL W/TEA COLORED CLEAR URINE. BLADDER TRAINING IN PROGRESS. DENIED ANY DISCOMFORT FOR THIS SHIFT.
--- NOTE | 2022-06-06 13:56 | NUR ---
[facility] visit with anneliese outside of room initially for advanced care planning conversation and to answer questions re: short and longterm care, transitions, placement options and care options in different settings. Anneliese is also working with CM for d/c planning in the short term. POLST completed and processed with copies provided to Anneliese for PCP (Josefina Elise MD), CM, medical records and pt's chart. Discussion of hospice support if pt's dementia and other chronic health conditions progress. Anneliese is very clear that her dad's wishes were for DNR and no prolongation of life in his current state. They are in agreement of Limited tx per POLST at this time but desire conservative tx with no invasive procedures or rescusitation efforts per his previously stated wishes. Anneliese was relieved to know that pt could remain in a LTC facility and receive hospice support. Short term goal is for SNF if pt meets criteria and is accpeted. Anneliese and sisters are working on [employer] application with CM assist on process. They have made contact with [facility] and have an first appointment at the end of this month. Visit also made to pt who was somnolent and minimally responsive to touch, not responsive to voice. He appears profoundly fatigued. He does not appear to be in discomfort or distress at this time. He is taking bites of pureed food for meals and crushed medications but declines PO intake much of time. Booklet, Hard choices for loving people, provided to anneliese to encourage conversation on advanced care planning with sisters and generate quesitons for providers in the future. Anneliese expressed appreciation for conversation and visit.
--- NOTE | 2022-06-06 17:48 | NUR ---
SHIFT SUMMARY PT SAMUEL CATH REMOVED THIS AM. PT HAS YET TO VOID, BUT ONLY HAD 141CC BLADDER SCAN. PT CONSTIPATED AND HAS TRIE TO HAS A BM 3 TIMES TODAY UNSUCCESSFULLY. MIRALAX AND MILK OF MAG GIVEN TODAY TO HELP. PT MORE AGITATED THIS AFTERNOON AND MORE RELUCTANT TO CARE. AFTERNOON SEROQUEL GIVEN ORDERED. PT FAMILY IN ROOM MOST THE DAY. PT TRANSFERING WITH A 2P ASSIST TO BSC AND CHAIR. UP IN CHAIR TWICE TODAY. NO OTHER ACUTE CHANGES IN ASSESSMENT AT THIS TIME. VS REVIEWED. PT UP IN BED. CALL LIGHT IN REACH EATING DINNER. BED ALARM IN PLACE.
--- NOTE | 2022-06-06 20:12 | NUR ---
MEDS GIVEN CRUSHED IN APPLESAUCE. PT TOLERATED WELL. PT HAS BEEN ASSISTED TO BSC USING GAIT BELT, WALKER AND TWO STAFF SINCE START OF SHIFT. PT HAS NOT HAD A BM. BOWEL CARE HAS BEEN STARTED.
--- NOTE | 2022-06-06 22:00 | NUR ---
PT RESTING OFF AND ON. PT IS SUN DOWNING. AGITATED AT TIMES. BED ALARM ON.
--- NOTE | 2022-06-06 23:57 | NUR ---
5MG ZYREXA GIVEN IM FOR AGITATION. PT REFUSED PO SEROQUEL. BED ALARM ON. CALL LT IN REACH.
--- NOTE | 2022-06-07 02:25 | NUR ---
PT STARTING TO BECOME A LITTLE MORE AGITATED. WILL MONITOR AND KEEP LINES INTACT. BED ALARM ON. CALL LT IN REACH.
--- NOTE | 2022-06-07 04:27 | NUR ---
SHIFT SUMMARY: ALERT AND FOLLOWING DIRECTIONS AT BEGINNING OF SHIFT. STARTED TO BECOME MORE CONFUSED AND NOT FOLLOWING DIRECTIONS LATER IN THE SHIFT. DID TAKE MEDS CRUSHED AND GIVEN IN APPLESAUCE WHEN MORE COOPERATIVE. REFUSED A PRN SEROQUEL. 5MG IV ZYPREXA GIVEN AT 2357 WHICH HELPED PT'S AGITATION. NO BOWEL MOVEMENT DURING THIS SHIFT. ON RA. 2PA, GAIT BELT AND FWW FOR TRANSFERS. PT WEAK. NS AT 50 MLS/HR. WILL CONTINUE TO PROVIDE CARE UNTIL SHIFT REPORT.
[2022-06-07 09:27] LABS: BASOPHILS ABSOLUTE AUTO 0.09 K/mm3 (0.00-0.23); BASOPHILS PERCENT AUTO 1 % (0-2); EOSINOPHILS PERCENT AUTO 4 % (0-6); Hematocrit 39.7 % (37.0-53.0); Hemoglobin 12.8 g/dL (13.5-17.5); IMMATURE GRAN PERCENT AUTO 1 % (0-1); LYMPHOCYTES ABSOLUTE AUTO 2.04 K/mm3 (0.84-5.20); LYMPHOCYTES PERCENT AUTO 22 % (21-46); MONOCYTES ABSOLUTE AUTO 0.77 K/mm3 (0.16-1.47); MONOCYTES PERCENT AUTO 8 % (4-13); Mean Corpuscular HGB 30.6 pg (26.0-34.0); Mean Corpuscular HGB Conc 32.2 g/dL (31.5-36.5); Mean Corpuscular Volume 95 fL (80-100); Mean Platelet Volume 11.4 fL (9.1-12.4); NEUTROPHILS ABSOLUTE AUTO 6.08 K/mm3 (1.96-9.15); NEUTROPHILS PERCENT AUTO 64 % (41-73); Platelet Count 389 K/mm3 (150-400); RDW Coefficient Variation 14.4 % (11.7-14.2); RDW Standard Deviation 50.2 fL (35.1-46.3); Red Blood Cell Count 4.18 M/mm3 (4.30-5.90); White Blood Cell Count 9.48 K/mm3 (4.00-11.30)
[2022-06-07 09:43] LABS: International Normalized Ratio 3.78; Prothrombin Time Results 36.4 Sec (9.7-11.5)
[2022-06-07 09:53] LABS: Bun/Creatinine Ratio 27.5 (12.0-20.0); Calcium, Blood 8.9 mg/dL (8.5-10.1); Creatinine, Blood 1.02 mg/dL (0.60-1.20); Potassium, Blood 4.1 mmol/L (3.5-5.5)
[2022-06-07 11:45] LABS: Source, Urine Straight Cath
[2022-06-07 12:00] LABS: Bilirubin, Urine Neg (Neg); Blood, Urine 4+ (Neg); Glucose Qualitative, Urine Neg (Neg); Ketones, Urine 1+ (Neg); Leukocyte Esterase, Urine Neg (Neg); Nitrite, Urine Neg (Neg); Protein, Urine 3+ (Neg); Urobilinogen, Urine NORM (Normal)
[2022-06-07 12:46] LABS: Appearance, Urine Clear (Clear); Color, Urine Yellow (P-Yellow)
[2022-06-07 12:48] LABS: Bacteria Few /hpf; Mucus Light (0-Heavy); Squamous Epithelial Cells Rare /hpf (Few); White Blood Cells, Urine 0-2 /hpf (0-5)
--- NOTE | 2022-06-07 19:26 | NUR ---
SHIFT SUMMARY: PT A/O X 1 PLEASANT AND COOPERATIVE WITH CARES TODAY. PT WAS WEAK WITH AMBULATION THIS AM NEEDING 2 ASSIST WITH GB/WALKER BUT PROGRESSIVELY GOT STRONGER AND BY END OF SHIFT WAS USING WALKER WITH STANDBY ASSIST. PT WAS BLADDER SCANNED THIS AM AFTER 3 ATTEMPTS TO URINATE AND UNABLE TO DO SO. PT HAD 884 ML WITH BLADDER SCAN. PT STRAIGHT CATH AND HAD 980 MLS OUTPUT. PT STARTED ON FLOMAX TODAY AND HAS NOT HAD URGE TO URINATE ALL DAY. NOC SHIFT ADVISED TO BLADDER SCAN THIS EVENING. PT ALSO HAD SYMPTOMS OF CONSTIPATION. PT GIVEN SUPPOSITORY AND BM NOTED TO CROWN BUT PT UNABLE TO PUSH STOOL OUT. PT DIGITALLY DISIMPACTED AND LARGE AMOUNT OF HARD ROUND STOOL PASSED. PT NOTED TO HAVE VERY SMALL AMOUNT OF RED BLOOD, POSSIBLY FROM HEMORRHOID. PT DID NOT HAVE ACTIVE BLEEDING FROM RECTUM ONCE STOOL PASSED. PT DIET ADVANCED TO REGULAR DIET AND HE TOLERATED WELL. CONTINUES TO HAVE OCCASIONAL MOIST COUGH. NO EDEMA. IV FLUIDS CONTINUE TO RUN AT 50 ML PER HR.
--- NOTE | 2022-06-08 03:27 | NUR ---
URINARY INCONTINENCE - PT WAS UNABLE TO VOID SINCE HIS LAST STRAIGHT CATH AT 1100. A BLADDER SCAN WAS DONE AT 2300 WHICH SHOWED 422 ML OF URINE. A STRAIGHT CATH WAS DONE, DURING WHICH THE URINE ONLY SLOWLY TRICKLED OUT WITH PRESSURE ON THE BLADDER.
--- NOTE | 2022-06-08 04:30 | NUR ---
SHIFT SUMMARY ADMITTED FOR ACUTE METABOLIC ENCEPHALOPATHY/UTI. PLAN IS FOR PLACEMENT. NS INFUSING ORDERED. PT IS IMPULSIVE. ATTEMPTING FREQUENTLY TO EXIT BED. PT IS CONFUSED. PRN ANXIETY MEDS GIVEN. NEW ANXIETY MED ORDER RECEIVED, ADMINISTERED WITH GOOD EFFECT. BLADDER SCAN REVEALED 422 CC'S OF URINE. STRAIGHT CATH REMOVED 400 CC'S. ON RA. HX OF DEMENTIA, FALLS. 2 ASSIST W/GB AND FWW TO BSC. IV ANTIB RX SCHEDULED
[2022-06-08 05:50] LABS: International Normalized Ratio 3.32; Prothrombin Time Results 32.2 Sec (9.7-11.5)
--- NOTE | 2022-06-08 16:54 | NUR ---
STRAIGHT CATH PT TOLERATED WELL, NO RESISTANCE WHILE ADVANCING 14 GUINEAN CATH-750 OUT.
--- NOTE | 2022-06-08 18:39 | NUR ---
SHIFT SUMMARY PT A&OX 3 AND IN PLEASENT MOOD T/O SHIFT. PT DID HIT STAFF ONCE TOWARD END OF SHIFT DUE TO PAIN. PT STRAIGHT CATHED DUE TO URINE RETENTION THIS SHIFT. CALL LIGHT W/IN REACH. VSS. BED ALARM IN PLACE. CONT. OF BOWEL T/O SHIFT. 2X MAX ASSIST TO BSC.
[2022-06-09 05:44] LABS: International Normalized Ratio 1.81; Prothrombin Time Results 18.3 Sec (9.7-11.5)
--- NOTE | 2022-06-09 06:09 | NUR ---
SHIFT SUMMARY PATIENT ALERT AND ORIENTED X2. HAD NO COMPLAINTS OF PAIN OR SHORTNESS OF BREATH. NO ACUTE ISSUES NOTED OVERNIGHT. CALL LIGHT WITHIN REACH. REPORT GIVEN TO ONCOMING RN.
--- NOTE | 2022-06-09 09:59 | NUR ---
PT C/O NECK PAIN. HAD SCHEDULED TYLENOL SO DON'T WANT TO GIVE NORCO SO SOON AFTER TYLENOL. CALLED DR FRIAS. OXYCODONE 5MG PO X 1 ORDERED. ORDER PLACED IN [place].
--- NOTE | 2022-06-09 11:50 | NUR ---
MR DUNAWAY IS ORIENTATED TO SELF ONLY, NOT TO PLACE OR [place]. HE IS ABLE TO FOLLOW INSTRUCTIONS, BUT FORGETFUL. MOIST COUGH. NO SOB. C/O NECK PAIN AND HIP PAIN THIS MORNING. GIVEN OXY 5MG PO AND HE HAS BEEN SLEEPING AFTERWARDS. HEATING PAD APPLIED TO NECK FOR COMFORT. DAUGHTER AT BEDSIDE. PT HAS BEEN COOPERATIVE THIS MORNING, IMPULSIVE IN GETTING OUT OF BED, BUT BED ALARM ON. CALL LIGHT IN REACH. BED LOW.
--- NOTE | 2022-06-09 17:33 | NUR ---
SHIFT SUMMARY SEE 1150 NOTE. PT WAS GIVEN OXY 5MG PO THIS MORNING FOR PAIN, AFTER WHICH HE SLEPT FOR A LOT OF THE AFTERNOON. HEATING PAD USED FOR NECK PAIN. PT TOLERATING LIQUIDS. BLADDER SCAN AT 1700 WAS 374, AFTER WHICH HE HAD 150CC PLUS INCONTINENT OF URINE. PT CONFUSED TODAY, BUT COOPERATIVE. FAMIKLY WITH [place] FOR MUCH OF THE DAY. BED LOW, BED ALARM ON. CALL LIGHT IN REACH.
[2022-06-10 04:48] LABS: International Normalized Ratio 1.43; Prothrombin Time Results 14.7 Sec (9.7-11.5)
--- NOTE | 2022-06-10 07:39 | NUR ---
SHIFT SUMMARY: PATIENT IS A&O TO SELF, PLEASANTLY CONFUSED. INC. OF URINE. SETS OFF BED ALARM WHEN TRYING TO GET UP TO VOID. PATIENT REPORTS BACK PAIN. SCHEDULED TYLENOL, HEAT THERAPY AND T&P ARE EFFECT FOR PAIN CONTROL. BED ALARM IS ON FOR SAFETY.
--- NOTE | 2022-06-10 17:30 | NUR ---
SHIFT SUMMARY MR DUNAWAY HAS BEEN DROWSY, BUT EASILY RESPONSIVE TODAY. ORIENTATED TO SELF, NOT PLACE OR DATE. HE IS 2 PERSON TRANSFER WITH GAIT BELT AND WALKER, SAT UP IN CHAIR TODAY FOR A FEW HOURS. HE HAS VOIDED SMALL VOLUMES. BLADDER SCANS CHECKED TWICE AT 291 AND 251 MLS. PT DENIES FEELING THE NEED TO VOID WHEN BLADDER SCANS DONE, ENCOURAGED AND ASSISTED TO VOID. ORAL CARE DONE WITH SXN SWABS, SCRUBBED AT WHITE TONGUE COATING. FAMILY TO BEDSIDE TODAY. PAIN SEEMS TO HAVE BEEN CONTROLLED, DISCOMFORT WHEN HE MOVES, BUT GENERALLY CONTROLLED TODAY. BED LOW, CALL LIGHT IN REACH, BED ALARM AND CHAIR ALARMS ON.
--- NOTE | 2022-06-11 07:53 | NUR ---
SHIFT SUMMARY: PATIENT CONTINUES TO REPORT BILAT HIP PAIN. SCHEDULED TYLENOL AND PRN NORCO ARE EFFECTIVE PAIN CONTROL. PATIENT IS INC, OF URINE. NO RETENTION OBSERVED THIS SHIFT. VSS, NO ACUTE CHANGES.
[2022-06-11 07:59] LABS: International Normalized Ratio 1.35; Prothrombin Time Results 13.9 Sec (9.7-11.5)
--- NOTE | 2022-06-11 16:54 | NUR ---
PATIENT WORKED WITH PT THIS SHIFT. HE SAT UP IN THE RECLINER FOR A WHILE. PATIENTS MOOD IS PLEASANT AND COOPERATIVE WITH SMILING. HE DENIES PAIN. BRUISE ON RIGHT HIP YELLOW/PURPLE AND LOOKS PAINFUL, BUT HE STATES IT IS SENSATIVE WHEN TOUCHED WITH NO OTHER COMPLAINTS. PLAN IS TO DC TO [facility], WAITING FOR APPROVAL.
--- NOTE | 2022-06-12 04:51 | NUR ---
SHIFT SUMMARY A/O TO SELF ONLY, EASILY AGITATED WHEN STAFF PROVIDES CARE. REFUSED PO MEDICATIONS THIS SHIFT. 2P MAX ASSIST. CONT/INCONT, ATTENDS IN PLACE. VSS, NO ACUTE CHANGES AT THIS TIME. BED IN LOWEST POSITION WITH CALL LIGHT IN REACH. WILL CONTINUE TO MONITOR AND REPORT TO ONCOMING RN.
[2022-06-12 04:53] LABS: International Normalized Ratio 1.48; Prothrombin Time Results 15.1 Sec (9.7-11.5)
--- NOTE | 2022-06-12 18:20 | NUR ---
PATIENT COOPERATIVE AND HAPPY THIS SHIFT. MEDICATONS WERE GIVEN WITHOUT ISSUE. PATIENTS DOSE OF COUMADIN CHANGED TO 7.5MG TONIGHT. HE HAS CONCERNS ABOUT FINANCIAL ISSUES, INCLUDING GAS MONEY. LS HAVE SCATTERED CRACKLES. PATIENT FORGETS THAT HE SHOULD ASK FOR HELP AND GETS UP FROM CHAIR/ALARM. MEPILEX IN PLACE ON BUTTOCKS.
[2022-06-13 04:59] LABS: International Normalized Ratio 1.92; Prothrombin Time Results 19.3 Sec (9.7-11.5)
--- NOTE | 2022-06-13 05:43 | NUR ---
SHIFT SUMMARY A/O TO SELF AND FAMILY. REFUSED MEDS THIS SHIFT BUT PLEASANTLY CONFUSED. CONT/INCONT. ATTENDS IN PLACE. 2P MAX ASSIST WITH FWW AND GB. VSS, NO ACUTE CHANGES AT THIS TIME. BED IN LOWEST POSITION WITH CALL LIGHT IN REACH. WILL CONTINUE TO MONITOR AND REPORT TO ONCOMING RN.
--- NOTE | 2022-06-13 17:09 | NUR ---
SHIFT SUMMARY PT A&OX2-3 AND IN PLEASENT MOOD T/O SHIFT. TRANSFER 2X ASSIST. REPEAT XRAY R HIP THIS SHIFT DUE TO PHYSICAL THERAPY REPORT OF MIN. USE OF DURING SESSION. CALL LIGHT W/ IN REACH, BED ALARM IN PLACE.
--- NOTE | 2022-06-14 05:55 | NUR ---
SHIFT SUMMARY 86 YR M ADMITTED ON 06/03/22 FOR ACUTE METABOLC ENCEPHALOPATHY. DNR. NO ACUTE CHANGES THIS SHIFT. PT BECAME VERY AGITATED WHEN THIS NURSE AND THE GRADUATING MACHINE OPERATOR ATTEMPTED TO CHANGE HIS WET BRIEF. HE ACTUALLY SLAPPED THIS NURSE. HOWEVER, WE WERE ABLE TO GET HIM CHANGED AND INTO A DRY BRIEF. A SHORT WHILE LATER HE WAS WET AGAIN AND WHEN THIS NURSE ASKED TO CHANGE HIM HE READILLY AGREED AND WAS PLEASANT AND COOPERATIVE. HE REFUSED HIS EVENING MEDS HE DID NOT WANT TO WAKE UP TO TAKE THEM. HE IS CONFUSED AND IS HALLUCINATING AT TIMES.
[2022-06-14 06:06] LABS: International Normalized Ratio 2.25; Prothrombin Time Results 22.4 Sec (9.7-11.5)
--- NOTE | 2022-06-14 16:50 | NUR ---
SHIFT SUMMARY PT A&OX2-3 AND IN PLEASENT MOOD T/O SHIFT. CONFUSION NOTED, PT STATES HE IS IN [place], THINKS KIDS ARE AT SCHOOL-HX OF DEMENTIA. PT CALLED DAUGHTER MAYA THIS SHIFT. CALL LIGHT W/IN REACH. BED ALARM IN PLACE.PAIN MEDICATED PER EMAR-SLEPT WELL AFTER PAIN MIDWIFE PRACTITIONER. VSS.
[2022-06-15 04:54] LABS: BASOPHILS ABSOLUTE AUTO 0.08 K/mm3 (0.00-0.23); BASOPHILS PERCENT AUTO 1 % (0-2); EOSINOPHILS ABSOLUTE AUTO 0.37 K/mm3 (0.00-0.68); EOSINOPHILS PERCENT AUTO 5 % (0-6); Hematocrit 33.5 % (37.0-53.0); Hemoglobin 10.9 g/dL (13.5-17.5); IMMATURE GRAN ABSOLUTE AUTO 0.28 K/mm3 (0.00-0.10); IMMATURE GRAN PERCENT AUTO 3 % (0-1); LYMPHOCYTES ABSOLUTE AUTO 2.11 K/mm3 (0.84-5.20); LYMPHOCYTES PERCENT AUTO 26 % (21-46); MONOCYTES ABSOLUTE AUTO 0.93 K/mm3 (0.16-1.47); MONOCYTES PERCENT AUTO 11 % (4-13); Mean Corpuscular HGB 30.4 pg (26.0-34.0); Mean Corpuscular HGB Conc 32.5 g/dL (31.5-36.5); Mean Corpuscular Volume 94 fL (80-100); Mean Platelet Volume 10.7 fL (9.1-12.4); NEUTROPHILS ABSOLUTE AUTO 4.39 K/mm3 (1.96-9.15); NEUTROPHILS PERCENT AUTO 54 % (41-73); Platelet Count 398 K/mm3 (150-400); RDW Coefficient Variation 13.9 % (11.7-14.2); RDW Standard Deviation 47.2 fL (35.1-46.3); Red Blood Cell Count 3.58 M/mm3 (4.30-5.90); White Blood Cell Count 8.16 K/mm3 (4.00-11.30)
--- NOTE | 2022-06-15 05:05 | NUR ---
SHIFT SUMMARY 86 YR M ADMITTED ON 06/03/22 FOR ACUTE METABOLIC ENCEPHALOPATHY. DNR. PT WAS MUCH NICER AND MORE COOPERATIVE THAN HE WAS THE PREVIOUS NIGHT. WE SPENT SOME TIME TALKING AND HE LAUGHED AND SEEMED TO ENJOY OUR CONVERSATION. HEIS STILL VERY CONFUSED, BUT HE DID NOT EXHIBIT ANGER OR FRUSTRATION THIS SHIFT. HE WAS PLEASANT AND COOPERATIVE. HE TALKS ABOUT HIS IN PAST AND PRESENT TENSE (SHE 5 YEARS AGO) AND STATES THAT SHE SHOULD BE THE ONE TAKING CARE OF HIM. HE IS INCONTINENT OF URINE AND DID NOT ASK TO GET UP TO THE BATHROOM AT ALL THIS SHIFT. VITAL SIGNS ARE STABLE AND FALL PRECAUTIONS ARE IN PLACE.
[2022-06-15 05:07] LABS: International Normalized Ratio 2.67; Prothrombin Time Results 26.3 Sec (9.7-11.5)
[2022-06-15 05:19] LABS: Creatinine, Blood 1.83 mg/dL (0.60-1.20); Potassium, Blood 3.9 mmol/L (3.5-5.5)
--- NOTE | 2022-06-15 17:05 | NUR ---
PATIENT IS ALERT AND ORIENTED TO SELF AND FOLLOWING DIRECTIONS. HE DID NOT KNOW WHO HIS DAUGHTER WAS. PATIENT WORKED WITH PT OT TODAY. AMBULATED WITH OT. UP IN RECLINER AT THIS TIME. PAIN MANAGED PER EMAR. WILL CONTINUE TO MONITOR
--- NOTE | 2022-06-16 03:27 | NUR ---
SHIFT SUMMARY 73 YR M ADMITTED ON 06/03/22 FOR ACUTE METABOLIC ENCEPHALOPATHY. DNR. NO ACUTE CHANGES THIS SHIFT. PT HAS SLEPT FOR MOST OF THIS SHIFT AND REFUSED TO WAKE UP TO TAKE HIS EVENING MEDS. HE DID CALL ONCE AND ASK TO USE THE BATHROOM BUT HE HAD ALREADY BEEN INCONTINENT OF URINE. HE TENDS TO GET VERY DEFENSIVE ABOUT HAVING HIS BRIEFS CHANGED BUT THIS NURSE MANAGED TO KEEP HIM CALM WHEN HE WAS GETTING AGITATED. HE DOES NOT LOOK KINDLY UPON BEING TREATED LIKE A BABY BUT RESPONDS VERY WELL A "FRIEND". HE MADE SEVERAL ATTEMPTS TO GET OUT OF BED AND AT ONE POINT EVEN KNELT DOWN ON HIS KNEES ON THE FLOOR LOOKING FOR HIS "GABRIEL". HE IS STILL WAITING FOR PLACEMENT IN A MEMORY CARE FACILITY.
[2022-06-16 05:10] LABS: Hematocrit 38.3 % (37.0-53.0); Hemoglobin 12.2 g/dL (13.5-17.5); Mean Corpuscular HGB 30.2 pg (26.0-34.0); Mean Corpuscular HGB Conc 31.9 g/dL (31.5-36.5); Mean Corpuscular Volume 95 fL (80-100); Mean Platelet Volume 10.9 fL (9.1-12.4); Platelet Count 426 K/mm3 (150-400); Red Blood Cell Count 4.04 M/mm3 (4.30-5.90)
[2022-06-16 05:24] LABS: International Normalized Ratio 2.63; Prothrombin Time Results 25.9 Sec (9.7-11.5)
[2022-06-16 05:50] LABS: Albumin, Blood 3.2 g/dL (3.4-5.0); Anion Gap 8 mmol/L (6-16); Blood Urea Nitrogen 37 mg/dL (8-24); Bun/Creatinine Ratio 25.3 (12.0-20.0); CO2, Blood 22 mmol/L (21-32); Calcium, Blood 9.3 mg/dL (8.5-10.1); Chloride, Blood 110 mmol/L (98-108); Creatinine, Blood 1.46 mg/dL (0.60-1.20); Glomerular Filtration Rate 46 (60-); Glucose, Blood 86 mg/dL (70-99); Phosphorus, Blood 2.9 mg/dL (2.5-4.9); Potassium, Blood 4.2 mmol/L (3.5-5.5); Sodium, Blood 140 mmol/L (136-145)
--- NOTE | 2022-06-17 05:00 | NUR ---
SHIFT SUMMARY: A/OX 1-2, CONTINUED CONFUSION AND FORGETFULNESS. CAMERA MONITORING IN PLACE DUE TO PATIENTS CONFUSION AND MULTIPLE ATTEMTPS TO GET OUT OF BED. PATIENT HAS REPORTED NO PAIN THROUGHOUT THE SHIFT. 0130 NOTED PATIENT HAD NOT VOIDED, BLADDER SCAN COMPLETED SHOWING RETENTION OF 426 ML URINE. STRAIGHT CATH COMPLETED 400 ML URINE OUTPUT. PT ABLE TO REST POST URINARY STRAIGHT CATH. BED ALARM ACTIVATED, BED IN LOW POSITION, CALL GARAY AND BELONGINGS IN REACH.
[2022-06-17 05:21] LABS: International Normalized Ratio 2.55; Prothrombin Time Results 25.2 Sec (9.7-11.5)
--- NOTE | 2022-06-17 18:49 | NUR ---
SHIFT SUMMARY A&O X 2. VSS. PT CONFUSED AND FORGETFUL. HAS SAT UP IN CHAIR MOST OF THE DAY. WILL ATTEMPT TO GET UP ON HIS OWN, IS NOT STEADY OR SAFE TO BE INDEPENDENT. HE IS 1-2 PERSON ASSIST WITH WALKER AND GB FOR TRANSFERS. CAN BE RE-DIRECTED THOUGH NOT RE-ORIENTED. THINKS HE'S IN [place] & DOES NOT UNDERSTAND HE'S IN THE HOSPITAL. AWAITING PLACEMENT.
[2022-06-18 00:31] LABS: Source, Urine Foley catheter
[2022-06-18 00:37] LABS: Appearance, Urine Clear (Clear); Bilirubin, Urine Neg (Neg); Blood, Urine Neg (Neg); Color, Urine Yellow (P-Yellow); Glucose Qualitative, Urine Neg (Neg); Ketones, Urine Neg (Neg); Leukocyte Esterase, Urine Neg (Neg); Nitrite, Urine Neg (Neg); Protein, Urine 3+ (Neg); Urobilinogen, Urine NORM (Normal)
[2022-06-18 00:48] LABS: Bacteria Mod /hpf; Mucus Light (0-Heavy); Red Blood Cells, Urine 0-2 /hpf (0-2); Squamous Epithelial Cells Not Seen /hpf (Few); White Blood Cells, Urine 0-2 /hpf (0-5)
--- NOTE | 2022-06-18 05:25 | NUR ---
SHIFT SUMMARY: A/OX1-2, CONTINUED CONFUSION, FORGETFULNESS, REPEATITIVE QUESTIONING. PATIENT HAS BEEN CALM, PLEASANT AND COOPERATIVE THROUGHOUT THE NIGHT. NO COMPLAINTS OF PAIN. REPORTED URINARY RETENTION DURING THE DAY, BLADDER SCAN AT THE BEGINNING OF SHIFT READING 500ML. SAMUEL CATHETER PLACED DUE TO CONTINUED URINARY RETENTION. SAMUEL IN PLACE DRAINING WELL. PT ABLE TO SLEEP WELL THROUGHOUT THE NIGHT. BED ALARM ACTIVATED, BED IN LOW POSITION, CALL GARAY AND BELONGINGS IN REACH.
[2022-06-18 05:29] LABS: International Normalized Ratio 2.25; Prothrombin Time Results 22.4 Sec (9.7-11.5)
--- NOTE | 2022-06-18 18:29 | NUR ---
PATIENT IS ALERT AND ORIENTED TO SELF AND FOLLOWING DIRECTIONS. HE WORKED WITH PT OT TODAY. SAT UP IN THE RECLINER FOR MOST OF THE SHIFT. HE WAS SHOWERED WITH ASSISTANCE. HIS DAUGHTER VISITED TODAY. NO NEW CONCERNS. WILL CONTINUE TO MONITOR
--- NOTE | 2022-06-18 21:51 | NUR ---
PT had bey cath placed last night for urinary retention reportedly 750 ml & he has been on remote camera monitoring who reported he had pulled on his cathater.Coude cath had deflated baloon with no obvious trauma observed.
[2022-06-19 06:04] LABS: Hematocrit 36.6 % (37.0-53.0); Hemoglobin 11.9 g/dL (13.5-17.5); Mean Corpuscular HGB 30.4 pg (26.0-34.0); Mean Corpuscular HGB Conc 32.5 g/dL (31.5-36.5); Mean Corpuscular Volume 94 fL (80-100); Platelet Count 344 K/mm3 (150-400); RDW Coefficient Variation 14.2 % (11.7-14.2); RDW Standard Deviation 48.4 fL (35.1-46.3); Red Blood Cell Count 3.91 M/mm3 (4.30-5.90); White Blood Cell Count 7.12 K/mm3 (4.00-11.30)
[2022-06-19 06:18] LABS: International Normalized Ratio 2.31
[2022-06-19 06:24] LABS: Albumin, Blood 3.1 g/dL (3.4-5.0); Anion Gap 5 mmol/L (6-16); Blood Urea Nitrogen 31 mg/dL (8-24); Bun/Creatinine Ratio 19.9 (12.0-20.0); CO2, Blood 25 mmol/L (21-32); Calcium, Blood 9.4 mg/dL (8.5-10.1); Chloride, Blood 112 mmol/L (98-108); Creatinine, Blood 1.56 mg/dL (0.60-1.20); Glomerular Filtration Rate 43 (60-); Glucose, Blood 92 mg/dL (70-99); Phosphorus, Blood 3.1 mg/dL (2.5-4.9); Potassium, Blood 3.9 mmol/L (3.5-5.5); Sodium, Blood 142 mmol/L (136-145)
--- NOTE | 2022-06-19 18:55 | NUR ---
PATIENT IS ALERT AND ORIENTED TO SELF AND FOLLOWING DIRECTIONS HE HAS BEEN COOPERATIVE WITH CARE TODAY. IMPULSIVE AT TIMES BUT REDIRECTABLE. PATIENT SPENT MOST OF HIS DAY UP IN THE RECLINER. HAS VOIDED THIS SHIFT. BLADDER SCANS SHOWED 230 ML, 230 ML AND 145 ML. NO NEW CONCERNS. WILL CONTINUE TO MONITOR
[2022-06-20 06:14] LABS: International Normalized Ratio 2.74; Prothrombin Time Results 26.9 Sec (9.7-11.5)
--- NOTE | 2022-06-20 07:15 | NUR ---
late entry for 06/19/22 0715. PT quiet has remote camera monitoring due to hx of falls & a couple attempts to climb out of bed. Easy to redirect. PT has compression fx on scheduled minmal dose norco 5. Vey poor appetite & fluid intake. No agression or disruptive BX. Appears to be hard of hearing & has some difficulty with communication. PT had bey placed for 750 ml urine retention the night before but he pulled it out around 2300 without apparent trauma. Assist to use urninal .
--- NOTE | 2022-06-20 07:19 | NUR ---
PT able to use urinal with assist & he has some urinary incont. No major retention measured on the 3 post void residuals done on day shift. Poor oral intake despite setup & cues. Offered supplements taken less than 50%. DC planning for this pleasantly confused PT. No OOB this shift fall preq continue.
--- NOTE | 2022-06-20 18:11 | NUR ---
SHIFT SUMMARY PT AxOx2 WITH FREQUENT CONFUSION/FORGETFULNESS. PT IS PLEASANT AND COOPERATIVE WITH CARE. PT WORKED WITH PHYSICAL/OCCUPATIONAL THERAPY THIS SHIFT. PT'S APPETITE LOOK TO BE IMPROVED TODAY. PT WAS UP FOR MEALS IN CHAIR AND WALKED TO BATHROOM THIS SHIFT. 2 ASSIST WITH FWW AND GB. PT HAD 2 FAMILY MEMBERS IN ROOM TODAY. THEY SPOKE WITH DR AND WERE UPDATED ON PLAN OF CARE. CURRENTLY LOOKING AT PLACEMENT AT SNF VS BUILDING [facility]PPLIES [facility]. PT WAS MEDICATED FOR BACK PAIN x1 THIS SHIFT. HEAT PAD USED PRN WELL. VITALS REVIEWED. PT CURRENTLY SITTING IN CHAIR EATING DINNER. CALL LIGHT IN REACH.
--- NOTE | 2022-06-21 05:36 | NUR ---
86 year old MAle who has Afib on Coumadin continues with anticoagulant per pharmacy. HX of CABG stents. PT has compression fxs with pain well controlled on 1 norco 3mg tab BID. Tolerating diet & activity better working with therapies. Poor safety awareness related to dementia PT has pleasant confusion. appears hard of hearing needs extra time & assist to follow directions but was able to sit on bedside chair feed self & get back to bed or BSC with assist FWW GB. Did drink 3 ensure shakes between day & evening shift. Wears pullup or attends needs assist to use urinal. DC planning continues for safe placement.
[2022-06-21 05:37] LABS: International Normalized Ratio 3.09; Prothrombin Time Results 30.1 Sec (9.7-11.5)
--- NOTE | 2022-06-21 17:36 | NUR ---
SHIFT SUMMARY NO ACUTE CHANGES DURING SHIFT. PT ALERT TO SELF, FOLLOWS COMMANDS. PT UP OOB TO CHAIR THROUGHOUT DAY. OUT TO HALLWAY WITH WALKER WITH PT. PT PENDING FACILITY PLACEMENT. CALL LIGHT WITHIN REACH.
--- NOTE | 2022-06-21 21:19 | NUR ---
REFUSED HS MEDS, BECAME AGITATED WHEN ASKED WHY HE DIDNT WANT TO TAKE HIS MEDS OR BE ASSISTED TO BED. METAL TANK BUILDER VOICED PT AGAIN REFUSED TO GO TO BED. VOICED HE WAS GOING TO SLEEP IN THE BEDSIDE RECLINER. CALL LIGHT IN REACH. NO NOTED ACUTE PHYSICAL DISTRESS.
--- NOTE | 2022-06-22 03:21 | NUR ---
BP 183/53. NO PRN ANTIHYPERTENSIVES ON DEC. CALL PLACED TO MD CIVIL ENGINEER AND PO HYDRALAZINE ORDERED.
[2022-06-22 04:58] LABS: Hemoglobin 11.7 g/dL (13.5-17.5); Mean Corpuscular HGB 30.6 pg (26.0-34.0); Mean Corpuscular HGB Conc 32.5 g/dL (31.5-36.5); Mean Corpuscular Volume 94 fL (80-100); Mean Platelet Volume 11.4 fL (9.1-12.4); Platelet Count 328 K/mm3 (150-400); RDW Standard Deviation 48.4 fL (35.1-46.3); Red Blood Cell Count 3.82 M/mm3 (4.30-5.90); White Blood Cell Count 7.35 K/mm3 (4.00-11.30)
[2022-06-22 05:11] LABS: International Normalized Ratio 2.64
[2022-06-22 05:17] LABS: Anion Gap 6 mmol/L (6-16); Blood Urea Nitrogen 41 mg/dL (8-24); Bun/Creatinine Ratio 28.3 (12.0-20.0); CO2, Blood 25 mmol/L (21-32); Calcium, Blood 9.4 mg/dL (8.5-10.1); Chloride, Blood 106 mmol/L (98-108); Creatinine, Blood 1.45 mg/dL (0.60-1.20); Glomerular Filtration Rate 47 (60-); Glucose, Blood 90 mg/dL (70-99); Phosphorus, Blood 3.1 mg/dL (2.5-4.9); Potassium, Blood 4.3 mmol/L (3.5-5.5); Sodium, Blood 137 mmol/L (136-145)
--- NOTE | 2022-06-22 05:33 | NUR ---
DEBURRING AND TOOLING MACHINE OPERATOR SUMMARY AT HS, REFUSED ALL HS MEDS AND WAS EASILY AGITATED, VERBALLY AGGRESSIVE WHEN ENCOURAGED TO TAKE HIS MEDS. REFUSED TO GET INTO BED AND DEMANDED TO SLEEP IN THE RECLINER AT BEDSIDE. HOWEVER, LATER AGREED TO GET INTO BED AND APPEARED TO SLEEP WITH FEW INTERRUPTIONS UNTIL VS TAKEN IN THE EARLY HOURS OF THE NIGHT. BP ELEVATED, 183/53. MD NOTIFIED AND HYDRALAZINE ORDERED. PT ACCEPTED MED AND SEEMED PLEASANT TOWARD STAFF SINCE. BP MED EFFECTIVE BP NOW 117/68. CALL LIGHT IN REACH.
[2022-06-22 06:51] LABS: Influenza A, PCR NEGATIVE (NEGATIVE); Influenza B, PCR NEGATIVE (NEGATIVE); Resp Syncytial Virus, PCR NEGATIVE (NEGATIVE); SARS-Cov-2 (COVID-19) PCR, MMC NEGATIVE (NEGATIVE)
--- NOTE | 2022-06-22 18:10 | NUR ---
SHIFT SUMMARY NO ACUTE CHANGES DURING SHIFT. PT ALERT TO SELF, FOLLOWS COMMANDS. PAIN MORE TOLERABLE TODAY. PT OOB TO CHAIR MOST OF DAY. PT PENDING PLACEMENT AT FACILITY STILL. CALL LIGHT WITHIN REACH. WILL CONTINUE TO MONITOR
--- NOTE | 2022-06-23 04:53 | NUR ---
SENIOR MECHANICAL DESIGNER SUMMARY AWAKE AT HS, ASSISTED TO BED FROM RECLINER. 1 - 2 PERSON ASSIST. AFFECT PLEASANT BUT VERBAL RESPONSE INTERMITENTLY NEEDING TO BE REDIRECTED. VSS. UP TO BEDSIDE COMMODE TO VOID ONCE, OTHERWISE, HAS BEEN RESTING QUIETLY WITH FEW INTERRUPTIONS SINCE. CALL LIGHT IN REACH
[2022-06-23 05:14] LABS: International Normalized Ratio 2.22; Prothrombin Time Results 22.1 Sec (9.7-11.5)
--- NOTE | 2022-06-23 18:59 | NUR ---
SHIFT SUMMARY NO ACUTE CHANGES DURING SHIFT. PT ALERT TO SELF, FOLLOWS COMMANDS. PT WITH FAMILY TO VISIT TODAY. PT OOB TO CHAIR FOR MEALS. PT STILL PENDING PLACEMENT AT FACILITY. CALL LIGHT WITHIN REACH.
--- NOTE | 2022-06-24 03:28 | NUR ---
PROTECTION ANALYST SUMMARY HAS BEEN RESTING QUIETLY WITH FEW INTERRUPTIONS THIS SHIFT. VSS. DENIED PAIN AND LOSS OF FEELING. NO NOTED S/S ACUTE PHYSICAL DISTRESS. UP TO BEDSIDE COMMODE FOR BM, AND BACK IN BED WITH 2 PERSON ASSIST. CALL LIGHT IN REACH. AFFECT PLEASANT
[2022-06-24 06:17] LABS: International Normalized Ratio 1.93; Prothrombin Time Results 19.4 Sec (9.7-11.5)
[2022-06-24 06:50] LABS: Albumin, Blood 3.3 g/dL (3.4-5.0); Anion Gap 8 mmol/L (6-16); Blood Urea Nitrogen 38 mg/dL (8-24); Bun/Creatinine Ratio 25.5 (12.0-20.0); CO2, Blood 22 mmol/L (21-32); Calcium, Blood 9.4 mg/dL (8.5-10.1); Chloride, Blood 108 mmol/L (98-108); Creatinine, Blood 1.49 mg/dL (0.60-1.20); Glomerular Filtration Rate 45 (60-); Glucose, Blood 90 mg/dL (70-99); Phosphorus, Blood 3.4 mg/dL (2.5-4.9); Potassium, Blood 4.1 mmol/L (3.5-5.5); Sodium, Blood 138 mmol/L (136-145)
--- NOTE | 2022-06-24 18:09 | NUR ---
SHIFT SUMMARY NO ACUTE CHANGES DURING SHIFT. PT ALERT TO SELF, STILL CONFUSED. FOLLOWS COMMANDS. PT UP TO CHAIR DURING MEALS. PT STILL PENDING PLACEMENT AT FACILITY. CALL LIGHT WITHIN REACH.
--- NOTE | 2022-06-25 03:20 | NUR ---
COLLET MAKING MACHINE OPERATOR SUMMARY HAS BEEN RESTING QUIETLY WITH FEW INTERRUPTIONS. HOWEVER, UP EARLIER TO THE BATHROOM. CONFRONTED RE GETTING OUT OF BED WITHOUT ASSIST, VOICED HE DIDNT NEED THE WALKER, ETC. ASSISTED TO BATHROOM AND THEN BACK TO BED. ALARM ON. CALL LIGHT IN REACH. SAFETY EMPHASIZED. NO NOTED ACUTE DISTRESS. WILL CONTINUE TO MONITOR
[2022-06-25 05:02] LABS: International Normalized Ratio 1.99
--- NOTE | 2022-06-25 18:32 | NUR ---
SHIFT SUMMARY PT HAS BEEN VERY MOBILE TODAY. HE WAS UP IN THE CHAIR FOR ALL MEALS, HAD A SHOWER, AND WAS UP IN THE ROOM WITH STAFF WALKING. HE HAS BEEN PLEASANTLY CONFUSED. CALM, AND COOPERATVE WITH STAFF, NO SIGN OF SUNDOWNING YET. HE IS IN THE CHAIR EATING DINNER. HE DOES HAVE A WET MOIST COUGH. WITH DINNER THOUGH UP AT 90 DEGREES AND WITH FOOD CUT INTO SMALL BITES. CHAIR ALARM ON AND PT CALL LIGHT WITHIN REACH
[2022-06-26 05:06] LABS: International Normalized Ratio 2.23; Prothrombin Time Results 22.2 Sec (9.7-11.5)
--- NOTE | 2022-06-26 06:48 | NUR ---
SHIFT SUMMARY PATIENT ALERT AND ORIENTED TO SELF. HAD NO COMPLAINTS OF PAIN OR SHORTNESS OF BREATH. NO ACUTE ISSUES NOTED OVERNIGHT. CALL LIGHT WITHIN REACH. REPORT GIVEN TO ONCOMING RN.
--- NOTE | 2022-06-26 17:35 | NUR ---
ASPIRATION/INCREASED WEAKNESS/SHIFT SUMMARY PT HAS HAD DIFFICULTY SWALLOWING PILLS T/O THE DAY. PREVIOUS ST EVAL STATED TO TAKE MEDS STANDARD. PT COUGHED A LOT AFTER TAKING AM PILLS AND CHOKED ON A PILL THIS AFTERNOON, WHICH RESULTED IN EMESIS. PT HAS A VERY MOIST COUGH AND NOW HAS CRACKLES IN THE BASES OF HIS LUNGS. DR. BROWN NOTIFIED AND AN ORDER FOR ST EVAL AND A CXR WAS ORDERED. PT REQUIRED A SONAM LIFT BACK TO BED DUE TO INCREASED WEAKNESS. PT WAS ABLE TO AMBULATE WITH ONE PERSON ASSIST THIS AM. WARFARIN AND SEROQUEL HELD DUE TO PT ASPIRATION RISK AT THIS TIME. PT ENCOURAGED TO SIT UPRIGHT AND TAKE DEEP BREATHES AND COUGH EFFECTIVELY. UNABLE TO TELL IF THE PT UNDERSTOOD. POOR APPETITE T/O THE DAY. NO OTHER ACUTE CHANGES IN ASSESSMENT AT THIS TIME. NO OTHER ACUTE CHANGES IN ASSESSMENT AT THIS TIME. VS REVIEWED. PT RESTING UP IN BED. CALL LIGHT IN REACH.
[2022-06-27 05:58] LABS: International Normalized Ratio 2.39; Prothrombin Time Results 23.7 Sec (9.7-11.5)
[2022-06-27 11:10] LABS: BASOPHILS ABSOLUTE AUTO 0.06 K/mm3 (0.00-0.23); BASOPHILS PERCENT AUTO 1 % (0-2); EOSINOPHILS ABSOLUTE AUTO 0.18 K/mm3 (0.00-0.68); EOSINOPHILS PERCENT AUTO 2 % (0-6); Hemoglobin 11.6 g/dL (13.5-17.5); IMMATURE GRAN ABSOLUTE AUTO 0.06 K/mm3 (0.00-0.10); IMMATURE GRAN PERCENT AUTO 1 % (0-1); LYMPHOCYTES ABSOLUTE AUTO 2.03 K/mm3 (0.84-5.20); LYMPHOCYTES PERCENT AUTO 18 % (21-46); MONOCYTES ABSOLUTE AUTO 1.05 K/mm3 (0.16-1.47); MONOCYTES PERCENT AUTO 9 % (4-13); Mean Corpuscular HGB 30.6 pg (26.0-34.0); Mean Corpuscular HGB Conc 32.2 g/dL (31.5-36.5); Mean Corpuscular Volume 95 fL (80-100); Mean Platelet Volume 11.9 fL (9.1-12.4); NEUTROPHILS ABSOLUTE AUTO 8.14 K/mm3 (1.96-9.15); NEUTROPHILS PERCENT AUTO 71 % (41-73); Platelet Count 263 K/mm3 (150-400); RDW Coefficient Variation 14.3 % (11.7-14.2); RDW Standard Deviation 49.5 fL (35.1-46.3); Red Blood Cell Count 3.79 M/mm3 (4.30-5.90); White Blood Cell Count 11.52 K/mm3 (4.00-11.30)
--- NOTE | 2022-06-27 11:19 | NUR ---
RN NOTE MR DUNAWAY IS ORIENTATED TO SELF, NOT TO PLACE, DATE OR SITUATION. STRONG MOIST NON-PRODUCTIVE COUGH, NO SOB NOTED. SPEACH THERAPY EVAL DONE THIS AM. PT HAD PROBLEMS TAKING HIS AM MEDICATIONS - SPIT OUT CAPSULE THAT COULD NOT BE OPENED/CRUSHED, TOOK OTHER PILLS CRUSHED IN APPLE SAUCE WITH QUITE A BIT OF PERSUASION AND RELUCTANCE FROM MR DUNAWAY. FAMILY BROUGHT IN [facility] ROOF CEMENT AND PAINT MAKER HELPER THIS AM. PT CONTINENT AND INCONTINENT OF URINE THIS AM. BED LOW, CALL LIGHT IN REACH. BED ALARM IN USE.
[2022-06-27 11:33] LABS: Albumin, Blood 3.1 g/dL (3.4-5.0); Anion Gap 3 mmol/L (6-16); Blood Urea Nitrogen 39 mg/dL (8-24); Bun/Creatinine Ratio 22.2 (12.0-20.0); CO2, Blood 28 mmol/L (21-32); Calcium, Blood 9.8 mg/dL (8.5-10.1); Chloride, Blood 108 mmol/L (98-108); Creatinine, Blood 1.76 mg/dL (0.60-1.20); Glomerular Filtration Rate 37 (60-); Glucose, Blood 95 mg/dL (70-99); Potassium, Blood 4.7 mmol/L (3.5-5.5); Sodium, Blood 139 mmol/L (136-145)
--- NOTE | 2022-06-27 18:01 | NUR ---
SHIFT SUMMARY MR DUNAWAY HAS HAS NOT WANTED TO EAT MUCH TODAY, BUT WILL TAKE CHOCOLATE ENSURE INSTEAD OF MEALS. IVF NS STARTED AT 75CC/HR FOR 1 LITER HE HAD POOR PO INTAKE. HE WAS ASSESSED BY MITALI FROM [facility] TODAY. STEFANO CASTANEDA CAME AND GAVE ALBUTEROL INHALER, PT HAS MOIST NON PRODUCTIVE COUGH. NOT SOB. ON NORCO BID, DOES C/O MILD LOWER ABD PAIN WHEN ASKED, BUT NOT OTHERWISE VERBALISING ANY DISCOMFORT. HE DID TAKE HIS FLONASE CAPSULE THIS AFTERNOON, AFTER SPITTING IT OUT THIS MORNING, AND HAS TOLERATED PO MEDS CRUSHED IN APPLESAUCE. HE HAS BEEN LOW ENERGY TODAY, HE DID NOT WANT TO GET UP INTO THE CHAIR TODAY. FAMILY VISITED HIM AND SAID HE SEEMED MORE CONFUSED THAN WHEN THEY SAW HIM [address] BROWN TALKED WITH PT'S DAUGHTER JUAN. BED LOW, CALL LIGHT IN REACH, BED ALARM ON.
[2022-06-28 05:32] LABS: International Normalized Ratio 1.98; Prothrombin Time Results 19.9 Sec (9.7-11.5)
[2022-06-28 08:14] LABS: BASOPHILS ABSOLUTE AUTO 0.06 K/mm3 (0.00-0.23); BASOPHILS PERCENT AUTO 0 % (0-2); EOSINOPHILS ABSOLUTE AUTO 0.03 K/mm3 (0.00-0.68); EOSINOPHILS PERCENT AUTO 0 % (0-6); Hematocrit 39.2 % (37.0-53.0); Hemoglobin 12.6 g/dL (13.5-17.5); IMMATURE GRAN ABSOLUTE AUTO 0.06 K/mm3 (0.00-0.10); IMMATURE GRAN PERCENT AUTO 0 % (0-1); LYMPHOCYTES ABSOLUTE AUTO 1.81 K/mm3 (0.84-5.20); LYMPHOCYTES PERCENT AUTO 13 % (21-46); MONOCYTES ABSOLUTE AUTO 1.32 K/mm3 (0.16-1.47); MONOCYTES PERCENT AUTO 9 % (4-13); Mean Corpuscular HGB 30.2 pg (26.0-34.0); Mean Corpuscular HGB Conc 32.1 g/dL (31.5-36.5); Mean Corpuscular Volume 94 fL (80-100); Mean Platelet Volume 11.7 fL (9.1-12.4); NEUTROPHILS ABSOLUTE AUTO 11.05 K/mm3 (1.96-9.15); NEUTROPHILS PERCENT AUTO 77 % (41-73); Platelet Count 272 K/mm3 (150-400); RDW Coefficient Variation 13.9 % (11.7-14.2); RDW Standard Deviation 48.1 fL (35.1-46.3); Red Blood Cell Count 4.17 M/mm3 (4.30-5.90); White Blood Cell Count 14.33 K/mm3 (4.00-11.30)
[2022-06-28 08:31] LABS: Albumin, Blood 3.2 g/dL (3.4-5.0); Anion Gap 8 mmol/L (6-16); Blood Urea Nitrogen 35 mg/dL (8-24); Bun/Creatinine Ratio 23.2 (12.0-20.0); CO2, Blood 23 mmol/L (21-32); Calcium, Blood 9.5 mg/dL (8.5-10.1); Chloride, Blood 109 mmol/L (98-108); Creatinine, Blood 1.51 mg/dL (0.60-1.20); Glomerular Filtration Rate 44 (60-); Glucose, Blood 106 mg/dL (70-99); Magnesium, Blood 2.4 mg/dL (1.6-2.4); Phosphorus, Blood 2.8 mg/dL (2.5-4.9); Potassium, Blood 4.7 mmol/L (3.5-5.5); Sodium, Blood 140 mmol/L (136-145)
[2022-06-28 11:08] LABS: PCO2 Arterial 31.6 mmHg (35-45); PO2 Arterial 50.5 mmHg (80-100); pH Blood Arterial 7.45 (7.35-7.45)
--- NOTE | 2022-06-28 18:37 | NUR ---
PT STARTED THE MORNING CONFUSED WITH COPIOUS AMMOUNTS OF SPUTUM IN HIS THROUAT AND LUNGS COUGHING. HE REFUSED TO BE SUCTIONED BOTH BY RT AND STAFF. HEAD CT, CHEST XRAY AND LAB WORK WAS DONE. PT CT NEGATIVE, LABS SHOWED NO HYPOXIC. THROUGHOUT THEY DAY STAFF ANCOURAGED COUGHING, ATTEMPTED TO SUCTION MORE AND HAD PT PLACED SILVICULTURIST TO PREVNET CHOKING. ALSO ASKED THAT MEDS BE HELD . HOWEVER THIS EVENING PT HAS IMPROVED IS ABLE TO SPEAK CLEARLY AND MAKE HIS NEED KNOWN. DAUGHTER WAS GIVEN AN UPDATE AND WAS INFORMED THAT PT WANTED TO HEAR FROM HER ABOUT HIS TESTS DONE TODAY. BED IN LOWEST POSITION AND CALL LIGHT IN REACH
--- NOTE | 2022-06-29 | NUR ---
2023 PT LYING IN BED, REPORTS PAIN IN NECK, GAVE SCHEDULED NORCO, WILL EVAL FOR EFFECT. PRODUCTIVE COUGH, SPUTUM NOT SEEN YET. ON RA AT 97%. DENIES SOB. SCABS ON SHINS. NO OTHER APPARENT SIGNS OF DISTRESS. CALL LIGHT IS IN REACH. BED ALARM IS ON.
--- NOTE | 2022-06-29 00:02 | NUR ---
2343 TURNED AND REPOSITIONED PT WITH ASSIST OF ANOTHER RN. PT'S ATTENDS IS DRY AT THIS TIME. PT DENIES NEED FOR ANYTHING ELSE AT THIS TIME. NO APPARENT SIGNS OF DISTRESS. CALL LIGHT IS IN REACH. BED ALARM IS ON.
--- NOTE | 2022-06-29 02:41 | NUR ---
ASSISTED SUPPLY CHAIN ASSISTANT IN TURNING AND REPOSITIONING PT, ATTENDS ARE DRY AT THIS TIME. NO APPARENT SIGNS OF DISTRESS. CALL LIGHT IS IN REACH. BED ALARM IS ON.
--- NOTE | 2022-06-29 04:31 | NUR ---
PT IS AAO X 3, ON RA. REPORTS NECK PAIN, GOT NORCO. SCABS ON SHINS.
--- NOTE | 2022-06-29 04:31 | NUR ---
TURNED AND REPOSITIONED, NO APPARENT SIGNS OF DISTRESS. ATTENDS DRY AT THIS TIME. CALL LIGHT IS IN REACH. BED ALARM IS ON.
[2022-06-29 05:05] LABS: BASOPHILS ABSOLUTE AUTO 0.04 K/mm3 (0.00-0.23); BASOPHILS PERCENT AUTO 1 % (0-2); EOSINOPHILS ABSOLUTE AUTO 0.33 K/mm3 (0.00-0.68); EOSINOPHILS PERCENT AUTO 4 % (0-6); Hematocrit 33.4 % (37.0-53.0); Hemoglobin 10.6 g/dL (13.5-17.5); IMMATURE GRAN ABSOLUTE AUTO 0.05 K/mm3 (0.00-0.10); IMMATURE GRAN PERCENT AUTO 1 % (0-1); LYMPHOCYTES ABSOLUTE AUTO 1.64 K/mm3 (0.84-5.20); LYMPHOCYTES PERCENT AUTO 20 % (21-46); MONOCYTES ABSOLUTE AUTO 0.89 K/mm3 (0.16-1.47); MONOCYTES PERCENT AUTO 11 % (4-13); Mean Corpuscular HGB 30.2 pg (26.0-34.0); Mean Corpuscular HGB Conc 31.7 g/dL (31.5-36.5); Mean Corpuscular Volume 95 fL (80-100); Mean Platelet Volume 11.8 fL (9.1-12.4); NEUTROPHILS ABSOLUTE AUTO 5.09 K/mm3 (1.96-9.15); NEUTROPHILS PERCENT AUTO 63 % (41-73); Platelet Count 239 K/mm3 (150-400); RDW Coefficient Variation 14.3 % (11.7-14.2); RDW Standard Deviation 49.5 fL (35.1-46.3); Red Blood Cell Count 3.51 M/mm3 (4.30-5.90); White Blood Cell Count 8.04 K/mm3 (4.00-11.30)
[2022-06-29 05:29] LABS: International Normalized Ratio 2.35; Prothrombin Time Results 23.3 Sec (9.7-11.5)
[2022-06-29 05:45] LABS: Albumin, Blood 2.7 g/dL (3.4-5.0); Anion Gap 7 mmol/L (6-16); Blood Urea Nitrogen 33 mg/dL (8-24); Bun/Creatinine Ratio 23.9 (12.0-20.0); CO2, Blood 24 mmol/L (21-32); Calcium, Blood 9.1 mg/dL (8.5-10.1); Chloride, Blood 111 mmol/L (98-108); Creatinine, Blood 1.38 mg/dL (0.60-1.20); Glomerular Filtration Rate 49 (60-); Glucose, Blood 96 mg/dL (70-99); Phosphorus, Blood 3.2 mg/dL (2.5-4.9); Potassium, Blood 3.8 mmol/L (3.5-5.5); Sodium, Blood 142 mmol/L (136-145)
--- NOTE | 2022-06-29 06:38 | NUR ---
PT LYING IN BED, EYES CLOSED, APPEARS TO BE RESTING. BREATHING IS EVEN, UNLABORED. NO APPARENT SIGNS OF DISTRESS. CALL LIGHT IS IN REACH. BED ALARM IS ON. NO OTHER CHANGES THIS SHIFT.
--- NOTE | 2022-06-29 09:40 | NUR ---
ST EVALUATED PATIENT, PATINET MORE ALERT THAN YESTERDAY, COMPLIANT WITH EVAL AND DEEP SUCTION, THICK YEBOAH SPUTUMN, PATIENT DING BETTER AT CLEARING THROAT, BED ALARM ON, PATIENT MAKES NEEDS KNOWN, WCTM
--- NOTE | 2022-06-29 10:42 | NUR ---
daughter at bedside, patient having a bedbath, dr zainab elkins now, patient has continued to be alert
--- NOTE | 2022-06-29 11:45 | NUR ---
OT IN WORKING WITH KRZYSZTOF NOW, PALLIATIVE CARE ROUNDED, TWO DAUGHTERS AT BEDSIDE
--- NOTE | 2022-06-29 13:09 | NUR ---
Supportive visit this afternoon. Pt resting in bed and is pleasantly confused. Pt's daughters at bedside. Offered therapeutic listening and validated concerns. Reviewed plan of care and continued therapeutic listening. Family reports [facility] has accepted Pt and will accept Pt next week. Family expresses appreciation and reports no other concerns at this time.
--- NOTE | 2022-06-29 17:47 | NUR ---
ALERT AND ORIENTED TO SELF, FAMILY. CALL LIGHT WITH IN REACH, BED ALARM ON, NOT IMPULSIVE. WORKED WITH PT/OT TODAY, AMBULATED IN HALLS SAT OOB IN CHAIR FOR THE AFTERNOON, 1-2 STAND BY/ MODERATE ASSISTANCE WITH A GAIT BELT. DENIES N/V, SOB, OR CP. LUNG SOUND RHINICHI, RALES, WHEEZES, STRONGER COUGH. DEEP SUCTION THIS AM WITH ONE TIME ORDER, THICK YEBOAH SECRETIONS THAT CLOG THE SUCTION LINE. ST KEPT PATIENT NPO EXCEPT MEDS CRUSHED IN APPLE SAUCE, TEASPOON OF WATER AFTER ORAL CARE. DAUGHTERS VISITED TODAY. CALL LIGHT WITH IN REACH, REANNA
[2022-06-30 05:29] LABS: International Normalized Ratio 2.36; Prothrombin Time Results 23.4 Sec (9.7-11.5)
--- NOTE | 2022-06-30 06:41 | NUR ---
SHIFT SUMMARY PT HAD THICK SOUNDING SECRETIONS T/O SHIFT AND A PRODUCTIVE COUGH. PT WAS OCCASIONALY CONFUSED ABOUT WHERE HE WAS AND WANTED TO LEAVE, BUT WAS EASILY REORIENTED TO THE SITUATION. PT WAS UP TO THE BSC WITH 1 ASSIST. RHONCHI COULD BE HEARD IN ALL 4 LOBES. PATIENT REMAINED NPO EXPCEPT FOR MEDS CRUSHED IN APPLESAUCE OR 1 TSP OF WATER AFTER ORAL CARE. VSS, CALL LIGHT WITHIN REACH.
--- NOTE | 2022-06-30 18:23 | NUR ---
alert, needs reoriented regularly, [place], very forgetful and hard to direct. chair and bed alarm on. ls rhonchi upper airways, diminished bases, cough becoming for strong, patient still unable to move the mucos out of his throat. sats 98% on ra, sob with exertion, patient forgets his own limitations. abd active bt, voiding per attends and bsu. ST increased patient to puree diet nectar thick liquids, teaspoon of water before and after oral care. call light with in reach, wctm
--- NOTE | 2022-06-30 19:30 | NUR ---
RECEIVED BEDSIDE REPORT FROM DAY SHIFT RN. PT RESPONDED WHEN TALKED TO. VERY NEW [place]. RESP E/U ON RA. WILL CONTINUE TO PROVIDE CARE T/O SHIFT. CALL LT IN REACH. BED ALARM ON.
--- NOTE | 2022-06-30 21:44 | NUR ---
PT CURRENTLY TALKING TO HIS DAUGHTER ON THE PHONE. BED ALARM ON.
--- NOTE | 2022-06-30 21:50 | NUR ---
PT AGITATED, TRYING TO THROW LEGS OVER SIDE OF BED. BED ALARM ON. PT IS BEING MONITOR VIA CAMERA.
--- NOTE | 2022-06-30 22:09 | NUR ---
CERAMIC TILE INSTALLER AND NURSE ASSISTED PT TO LAY DOWN IN BED. BED ALARM ON. CALL LT IN REACH.
--- NOTE | 2022-07-01 00:35 | NUR ---
PT WATCHING TV QUIETLY. ABX HUNG. NO OTHER NEEDS. CALL LT IN REACH. BED ALARM ON.
--- NOTE | 2022-07-01 02:00 | NUR ---
PT RESTING QUIETLY. EYES CLOSED. RESP E/U. CALL LT IN REACH. BED ALARM ON.
--- NOTE | 2022-07-01 04:00 | NUR ---
PLACED NETTING OVER LFA IV SITE D/T PT PULLING AT LINE. EXPLAINED TO PT THAT THE NETTING WAS TO PROTECT THE LINE AND MAKE HIM MORE COMFORTABLE, PT SAID THANK YOU.
--- NOTE | 2022-07-01 04:17 | NUR ---
SHIFT SUMMARY: ALERT TO SELF AND FAMILY NAMES. ON RA. OCCASIONAL CONGESTED SOUNDING COUGH. REFUSED PM MEDS. NO COMPLAINTS OF PAIN OR SOB. 2PA TO THE BSC. PT VOIDED WELL. AGITATED AT TIMES, ABLE TO REDIRECT PT. NO ACUTE CHANGES. AWAITING PLACEMENT. WILL CONTINUE TO PROVIDE CARE UNTIL SHIFT REPORT.
--- NOTE | 2022-07-01 05:43 | NUR ---
PT RESTING QUIETLY AT THIS TIME. BED ALARM ON. CALL LT IN REACH.
[2022-07-01 05:58] LABS: Hematocrit 35.1 % (37.0-53.0); Hemoglobin 10.9 g/dL (13.5-17.5); Mean Corpuscular HGB 29.8 pg (26.0-34.0); Mean Corpuscular HGB Conc 31.1 g/dL (31.5-36.5); Mean Corpuscular Volume 96 fL (80-100); Mean Platelet Volume 11.5 fL (9.1-12.4); Platelet Count 280 K/mm3 (150-400); RDW Coefficient Variation 13.8 % (11.7-14.2); RDW Standard Deviation 49.1 fL (35.1-46.3); Red Blood Cell Count 3.66 M/mm3 (4.30-5.90); White Blood Cell Count 6.06 K/mm3 (4.00-11.30)
[2022-07-01 06:13] LABS: International Normalized Ratio 2.63; Prothrombin Time Results 25.9 Sec (9.7-11.5)
[2022-07-01 06:39] LABS: Bun/Creatinine Ratio 15.5 (12.0-20.0); Calcium, Blood 9.1 mg/dL (8.5-10.1); Creatinine, Blood 1.16 mg/dL (0.60-1.20); Potassium, Blood 3.7 mmol/L (3.5-5.5)
--- NOTE | 2022-07-01 19:32 | NUR ---
RECEIVED REPORT FROM DAY SHIFT RN. PT IN BED MOVING AROUND WATCHING TV. RESP EVEN ON RA. BED ALARM ON AND MONITORED BY CAMERA. WILL PROVIDE CARE T/O SHIFT. CALL LT IN REACH.
--- NOTE | 2022-07-01 20:00 | NUR ---
REPOSITIONED PT IN BED. ELEVATED HOB FOR MED PASS. PT TOOK MEDS WHOLE IN PUDDING WITHOUT DIFFICULTY. NO COUGHING OR CHOKING NOTED. DRANK SOME NECTAR THICK WATER. NO COMPLAINTS. NO OTHER NEEDS. PT COOPERATIVE WITH CARE AT THIS TIME. BED ALARM ON. CALL LT IN REACH.
--- NOTE | 2022-07-01 22:07 | NUR ---
AT THIS TIME, PT IS WATCHING TV AND DOZING OFF AT TIMES. NO NEEDS AT THIS TIME. BED ALARM ON.
--- NOTE | 2022-07-02 00:05 | NUR ---
PT AWAKE. DRY HOARSE, COUGH AT TIMES. PT STATES HE'S OK FOR NOW. NO NEEDS AT THIS TIME.
--- NOTE | 2022-07-02 00:29 | NUR ---
RT ASSESSED PT AND GAVE HIM A BREATHING TREATMENT. PT HAS A STRONG COUGH AND PRODUCING A SMALL AMOUNT OF WHITISH SPUTUM. HOB ELEVATED.
--- NOTE | 2022-07-02 02:25 | NUR ---
TWO STAFF NEEDED TO ASSIST PT USING THE FWW TO BSC. UNMEASURED VOID, PT VOIDED ON FLOOR BEFORE SITTING ON THE BSC. PT'S BRIEF WAS WET TOO. ASSISTED PT BACK TO BED AFTER CLEAN BRIEFS WERE PLACED. NO OTHER NEEDS. BED ALARM ON. CALL LT IN REACH.
--- NOTE | 2022-07-02 03:53 | NUR ---
PT LYING IN BED AWAKE AND MOVING AROUND. NO NEEDS AT THIS TIME. CALL LT IN REACH.
--- NOTE | 2022-07-02 04:14 | NUR ---
SHIFT SUMMARY: NO ACUTE CHANGES. ON RA. STARTED COUGHING DURING SHIFT, STRONG COUGH, ABLE TO EXPECTORATE A SMALL AMOUNT OF WHITISH COLORED SPUTUM. PT ALLOWED A LITTLE ORAL SUCTION OF MOUTH. HOB HAS BEEN ELEVATED. UP OUT OF BED TO USE BSC USING FWW. INCONTINENT/CONTINENT OF URINE. BOWEL CARE MEDS GIVEN DURING MED PASS. PT HAS BEEN MORE COMPLIANT WITH CARE THIS SHIFT. EASILY DIRECTABLE. WILL CONTINUE TO PROVIDE CARE UNTIL SHIFT REPORT.
[2022-07-02 05:37] LABS: International Normalized Ratio 3.05; Prothrombin Time Results 29.8 Sec (9.7-11.5)
--- NOTE | 2022-07-02 06:10 | NUR ---
2PA TO HELP PT STAND AND USE URINAL. PT VOIDING WELL. ASSISTED PT TO RECLINER CHAIR. NO OTHER NEEDS. CALL LT IN REACH.
--- NOTE | 2022-07-02 17:04 | NUR ---
NO ACUTE CHANGES THIS SHIFT. PATIENT UP IN CHAIR FOR MOST OF THE DAY. ABLE TO AMBULATE ABOUT 50FT TODAY WITH FWW, GB AND 1 ASSIST. VSS, ON . OCCASIONAL PRODUCTIVE COUGH. PAIN WELL CONTROLLED WITH SCHEDULED NORCO. PLAN IS FOR PLACEMENT AT [facility] ON SATURDAY. PATIENT A/OX2-3, REMAINS IMPULSIVE.
[2022-07-03 05:10] LABS: International Normalized Ratio 2.91; Prothrombin Time Results 28.5 Sec (9.7-11.5)
--- NOTE | 2022-07-03 05:11 | NUR ---
SHIFT SUMMARY NO ACUTE CHANGES. AOX1-SELF. CONFUSED. ABLE TO FOLLOW SIMPLE DIRECTIONS. DENIES PAIN, N/V OR DYSPNEA. E/U RESP. SPO2 >90% ON RA. LS DIM c CRACKLES IN BASES. OCC WEAK NONPRODUCTIVE MOIST COUGH. INCONT OF URINE, ATTENDS CHANGED PRN. PLAN TO DC TO [facility] ON SATURDAY. CALL LIGHT & BED ALARM IN PLACE. WILL CONT TO MONITOR.
--- NOTE | 2022-07-03 18:29 | NUR ---
NO ACUTE CHANGES THIS SHIFT. PATIENT RESTED WELL TODAY. WOKE FOR MEALS AND FAMILY VISITS. TOLERATED MS DIET WELL AND IS ABLE TO FEED HIMSELF. TAKES PILLS WELL WHOLE WITH PUDDING. 2 LARGE BM'S TODAY. CONT/INCONT OF URINE. VSS, ON RA. BARRIER CREAM TO BUTTOCKS AND REDNESS HAS IMPROVED. FAMILY CAME TO VISIT AND EVERYTHING IS SET UP FOR D/C TO [facility] TOMORROW. PATIENT AMULATED WITH FWW, GB AND 1 ASSIST. GAIT STEADY, BUT PATIENT DOES REQUIRE MULTIPLE QUES. NECK/BACK PAIN WELL CONTROLLED WITH SCHEDULED NORCO. PATIENT VERY PLEASANT AND COOPERATIVE WITH CARE.
[2022-07-04 07:22] LABS: International Normalized Ratio 2.6; Prothrombin Time Results 25.6 Sec (9.7-11.5)
--- NOTE | 2022-07-04 07:40 | NUR ---
SHIFT SUMMARY: NO ACUTE CHANGES,VSS,NO REPORTS OF PAIN. INC. OF URINE AT TIMES. CONFUSED AT BASELINE.
[2022-07-04] MEDS ORDERED: TAMS.4ER PO (10:46)
[2022-07-04] MEDS ORDERED: SENN187 PO (10:47)
[2022-07-04] MEDS ORDERED: Seroquel Xr50 MG PO (10:47)
[2022-07-04] MEDS ORDERED: CITALOPRAM HBR10 MG PO (10:48)
[2022-07-04] MEDS ORDERED: DOXA1 PO (10:49)
[2022-07-04] MEDS ORDERED: Norco 5-325 Ta1 EACH PO (10:50)
[2022-07-04] MEDS ORDERED: ACET500 PO (10:53)
--- NOTE | 2022-07-04 11:20 | NUR ---
DISCHARGE SUMMARY PATIENT IS ALERT BUT CONFUSED. PATIENT HAS BEEN PLEASENT AND COOPERATIVE WITH CARE. PATIENT HAS HAD NO ACUTE EVENTS THIS SHIFT. VITAL SIGNS REVIEWED. IV REMOVED WNL. PATIENT IS BEING DISCHARGED TO [facility]. PATIENT IS BEING TRANSPORTED BY [facility].
== END 2022-07-04 11:12 | DRG 91 ==
LOC: ER 10:09 → MEDS 16:15 → PCU 17:15 → ER 17:15 → MEDS 17:22
PROVIDERS: Emergency Medicine; Family Medicine; Internal Medicine; Nurse Practitioner Acute Care; ADMIT Internal Medicine
DX: G92.8 Other toxic encephalopathy (principal); J69.0 Pneumonitis due to inhalation of food and vomit; F02.81 Dementia in other diseases classified elsewhere, unspecified severity, with behavioral disturbance; I48.20 Chronic atrial fibrillation, unspecified; S32.018A Other fracture of first lumbar vertebra, initial encounter for closed fracture; S32.028A Other fracture of second lumbar vertebra, initial encounter for closed fracture; L03.113 Cellulitis of right upper limb; N13.8 Other obstructive and reflux uropathy; N39.0 Urinary tract infection, site not specified; J44.0 Chronic obstructive pulmonary disease with (acute) lower respiratory infection; Z66 Do not resuscitate; Z51.5 Encounter for palliative care; Z20.822 Contact with and (suspected) exposure to COVID-19; T40.2X5A Adverse effect of other opioids, initial encounter; N40.1 Benign prostatic hyperplasia with lower urinary tract symptoms; G30.9 Alzheimer's disease, unspecified; R33.8 Other retention of urine; I12.9 Hypertensive chronic kidney disease with stage 1 through stage 4 chronic kidney disease, or unspecified chronic kidney disease; N18.30 Chronic kidney disease, stage 3 unspecified; M10.9 Gout, unspecified; G47.30 Sleep apnea, unspecified; E78.5 Hyperlipidemia, unspecified; K21.9 Gastro-esophageal reflux disease without esophagitis; Z95.5 Presence of coronary angioplasty implant and graft; Z79.01 Long term (current) use of anticoagulants; Z79.899 Other long term (current) drug therapy; W18.39XA Other fall on same level, initial encounter; Y92.009 Unspecified place in unspecified non-institutional (private) residence as the place of occurrence of the external cause
CPT/HCPCS: 0241U; 36415; 36600; 51702; 70450; 71045; 72170; 73502; 80048; 80053; 80069; 81001; 82550; 82803; 82947; 83735; 84145; 85025; 85027; 85610; 87086; 92526; 92610; 93005; 93010; 94640; 94664; 94668; 94760; 96374-59; 97110; 97112; 97116; 97162; 97165; 97530; 97535; 98960; 99285-25; A9270; J0696; J1630; J7030

== ENCOUNTER 2022-07-26 15:05 | Inpatient (IN) | payer MEDICARE ==
[~2022-07-26] VITALS: Ht 175.3 cm; Wt 84.0 kg
[~2022-07-26 15:05] MED LIST changes: +ACET500 PO; +CITALOPRAM HBR10 MG PO; +DOXA1 PO; +MEMA5TAB PO; +Norco 5-325 Ta1 EACH PO; +SENN187 PO; +Seroquel Xr50 MG PO; +TAMS.4ER PO
[2022-07-26 15:54] LABS: BASOPHILS ABSOLUTE AUTO 0.07 K/mm3 (0.00-0.23); BASOPHILS PERCENT AUTO 0 % (0-2); EOSINOPHILS ABSOLUTE AUTO 0.05 K/mm3 (0.00-0.68); EOSINOPHILS PERCENT AUTO 0 % (0-6); Hematocrit 38.2 % (37.0-53.0); Hemoglobin 12.2 g/dL (13.5-17.5); IMMATURE GRAN ABSOLUTE AUTO 0.12 K/mm3 (0.00-0.10); IMMATURE GRAN PERCENT AUTO 1 % (0-1); LYMPHOCYTES ABSOLUTE AUTO 1.38 K/mm3 (0.84-5.20); LYMPHOCYTES PERCENT AUTO 8 % (21-46); MONOCYTES ABSOLUTE AUTO 1.25 K/mm3 (0.16-1.47); MONOCYTES PERCENT AUTO 7 % (4-13); Mean Corpuscular HGB Conc 31.9 g/dL (31.5-36.5); Mean Corpuscular Volume 94 fL (80-100); Mean Platelet Volume 11.4 fL (9.1-12.4); NEUTROPHILS ABSOLUTE AUTO 14.26 K/mm3 (1.96-9.15); NEUTROPHILS PERCENT AUTO 83 % (41-73); Platelet Count 276 K/mm3 (150-400); RDW Coefficient Variation 14.3 % (11.7-14.2); RDW Standard Deviation 49.4 fL (35.1-46.3); Red Blood Cell Count 4.07 M/mm3 (4.30-5.90); White Blood Cell Count 17.13 K/mm3 (4.00-11.30)
[2022-07-26 16:03] LABS: Albumin, Blood 3.2 g/dL (3.4-5.0); Albumin/Globulin Ratio 0.9 (0.8-1.8); Bilirubin, Total 1.5 mg/dL (0.1-1.0); Bun/Creatinine Ratio 16.8 (12.0-20.0); Calcium, Blood 9.5 mg/dL (8.5-10.1); Creatinine, Blood 1.25 mg/dL (0.60-1.20); Globulin, Blood 3.6 g/dL (2.2-4.0); Total Protein, Blood 6.8 g/dL (6.4-8.2)
[2022-07-26 16:44] LABS: Base Excess Venous -0.5 mmol/L; Bicarbonate Venous 23.8 mmol/L (24.0-30.0); PCO2 Venous 38.9 mmHg (38-42)
[2022-07-26 17:09] LABS: Source, Urine Voided
[2022-07-26 17:19] LABS: Bilirubin, Urine Neg (Neg); Blood, Urine Neg (Neg); Color, Urine Yellow (P-Yellow); Glucose Qualitative, Urine Neg (Neg); Ketones, Urine Neg (Neg); Leukocyte Esterase, Urine Neg (Neg); Nitrite, Urine Neg (Neg); Protein, Urine 2+ (Neg); Urobilinogen, Urine NORM (Normal)
[2022-07-26 17:34] LABS: Appearance, Urine Hazy (Clear); Granular Casts 0-2 /lpf (0); Hyaline Casts 0-2 /lpf (0-2); Mucus Light (0-Heavy)
[2022-07-26 17:35] LABS: Bacteria Mod /hpf; Red Blood Cells, Urine 0-2 /hpf (0-2); Squamous Epithelial Cells Rare /hpf (Few); White Blood Cells, Urine 0-2 /hpf (0-5)
[2022-07-26 17:37] LABS: Influenza A, PCR NEGATIVE (NEGATIVE); Influenza B, PCR NEGATIVE (NEGATIVE); Resp Syncytial Virus, PCR NEGATIVE (NEGATIVE); SARS-Cov-2 (COVID-19) PCR, MMC NEGATIVE (NEGATIVE)
[2022-07-26] MEDS ORDERED: ASPI81CH PO (18:40)
[2022-07-26] MEDS ORDERED: AMLO5 PO (18:40)
[2022-07-26] MEDS ORDERED: DOXA1 PO (18:41)
[2022-07-26] MEDS ORDERED: Celexa20 MG PO (18:41)
[2022-07-26] MEDS ORDERED: Flomax0.4 MG PO (18:42)
[2022-07-26] MEDS ORDERED: Norco 5-325 Ta1 EACH PO ×2 (18:42→18:43)
[2022-07-26] MEDS ORDERED: LOSA50 PO (18:42)
[2022-07-26] MEDS ORDERED: MEMA5TAB PO (18:42)
[2022-07-26] MEDS ORDERED: LOPE2C PO (18:43)
[2022-07-26] MEDS ORDERED: Seroquel Xr50 MG PO (18:43)
[2022-07-26] MEDS ORDERED: DOCUZEN 8.6-501 EACH PO (18:43)
[2022-07-26] MEDS ORDERED: NYSTATIN15 GM TOP (18:44)
[2022-07-26] MEDS ORDERED: Vitamin D1000 UNI1 PO (22:17)
[2022-07-26] MEDS ORDERED: ACET325 PO (22:18)
[2022-07-26] MEDS ORDERED: [UNRECOGNIZED DRUG - OTHER] TOP (22:19)
[2022-07-26] MEDS ORDERED: DULCOLAX400 MG/5 M PO (22:20)
--- NOTE | 2022-07-26 22:33 | NUR ---
ADMIT NOTE 86 YR OLD MALE ADMITTED TO FLOOR FROM THE ED WITH DX OF SEPSIS. HX DEMENTIA. UNABLE TO ANSWER ALL MEDICATION QUESTIONS. WILL HAVE AM NURSE F/U. CALL LIGHT IN REACH. RAILS UP X 3. BED ALARM ON. CAMERA ON FOR SAFETY
[2022-07-26 23:39] LABS: Adenovirus F 40/41 Not Detected (NOT DETECT); Astrovirus Not Detected (NOT DETECT); Campylobacter Sp Not Detected (NOT DETECT); Cryptosporidium Not Detected (NOT DETECT); Cyclospora Cayetanensis Not Detected (NOT DETECT); E. Coli O157 Not Detected (NOT DETECT); Entamoeba Histolytica Not Detected (NOT DETECT); Enteroaggregative E. coli-EAEC Not Detected (NOT DETECT); Enteropathogenic E. coli-EPEC Not Detected (NOT DETECT); Enterotoxigenic E. coli-ETEC Not Detected (NOT DETECT); Giardia Lamblia Not Detected (NOT DETECT); Norovirus GI/GII Not Detected (NOT DETECT); Plesiomonas Shigelloides Not Detected (NOT DETECT); Rotavirus A Not Detected (NOT DETECT); Salmonella Sp Not Detected (NOT DETECT); Sapovirus Not Detected (NOT DETECT); Shiga Toxin-prod E. coli-STEC Not Detected (NOT DETECT); Shigella/Enteroin E. coli-EIEC Not Detected (NOT DETECT); Vibrio Cholerae Not Detected (NOT DETECT); Vibrio Sp Not Detected (NOT DETECT); Yersinia Enterocolitica Not Detected (NOT DETECT)
--- NOTE | 2022-07-27 03:23 | NUR ---
WHEEL PRESS CLERK SUMMARY WAS ADMITTED EARLIER IN THE SHIFT WITH DX OF SEPSIS AND DEMENTIA. IVF OF NS WITH INTERMITTENT ANTIBIOTICS INFUSING - SEE MAR FOR DETAILS. SOME INTERMITTENT AGITATION NOTED, BUT OTHERWISE SEEMS TO BE RESTING WITHOUT NOTED ACUTE DISTRESS. INCONT OF FECES - SAMPLE SENT TO LAB FOR GI PANEL PROCESSING. CALL LIGHT IN REACH. ON CAMERA FOR SAFETY AND BED ALARM ON. WILL CONTINUE TO MONITOR.
--- NOTE | 2022-07-27 05:23 | NUR ---
TEMP WAS 102 F PER TEMPORAL AND ORAL. NOT RECEPTIVE TO PO TYLENOL, ICE BAGS TO BILAT AXILLA. TEMP DOWN TO 99.7 TEMPORAL. IVF INFUSING. CALL LIGHT IN REACH. EASILY AGITATED. RAILS UP X 3. BED ALARM ON. ON CAMERA FOR SAFETY
[2022-07-27 05:24] LABS: Hemoglobin 11.2 g/dL (13.5-17.5); Mean Corpuscular HGB 30.9 pg (26.0-34.0); Mean Corpuscular HGB Conc 32.9 g/dL (31.5-36.5); Mean Corpuscular Volume 94 fL (80-100); Mean Platelet Volume 10.9 fL (9.1-12.4); Platelet Count 247 K/mm3 (150-400); RDW Coefficient Variation 14.2 % (11.7-14.2); RDW Standard Deviation 48.9 fL (35.1-46.3); Red Blood Cell Count 3.63 M/mm3 (4.30-5.90); White Blood Cell Count 15.45 K/mm3 (4.00-11.30)
[2022-07-27 05:52] LABS: Calcium, Blood 8.2 mg/dL (8.5-10.1); Creatinine, Blood 1.2 mg/dL (0.60-1.20); Potassium, Blood 3.3 mmol/L (3.5-5.5)
--- NOTE | 2022-07-28 04:06 | NUR ---
NIGHTSHIFT SUMMARY Patient resting comfortably all night, respirations even/nonlabored. Arouses easily to voice/touch. Patient easily irritable when awoken. Lungs diminshed, cough congested/non-productive, vitals stable, afebrile, saturations stable on RA. Incontinent B/B, 1 episode of loose/mucous stool. IV Vancomycin infused. No other concerns this shift. Will continue to monitor vitals, & stool output.
[2022-07-28 05:29] LABS: BASOPHILS ABSOLUTE AUTO 0.08 K/mm3 (0.00-0.23); BASOPHILS PERCENT AUTO 1 % (0-2); EOSINOPHILS PERCENT AUTO 3 % (0-6); Hematocrit 35.7 % (37.0-53.0); Hemoglobin 11.2 g/dL (13.5-17.5); IMMATURE GRAN PERCENT AUTO 1 % (0-1); LYMPHOCYTES ABSOLUTE AUTO 1.68 K/mm3 (0.84-5.20); LYMPHOCYTES PERCENT AUTO 14 % (21-46); MONOCYTES ABSOLUTE AUTO 1.09 K/mm3 (0.16-1.47); MONOCYTES PERCENT AUTO 9 % (4-13); Mean Corpuscular HGB 29.7 pg (26.0-34.0); Mean Corpuscular HGB Conc 31.4 g/dL (31.5-36.5); Mean Corpuscular Volume 95 fL (80-100); NEUTROPHILS ABSOLUTE AUTO 8.97 K/mm3 (1.96-9.15); NEUTROPHILS PERCENT AUTO 73 % (41-73); Platelet Count 235 K/mm3 (150-400); RDW Coefficient Variation 14.1 % (11.7-14.2); RDW Standard Deviation 49.1 fL (35.1-46.3); Red Blood Cell Count 3.77 M/mm3 (4.30-5.90); White Blood Cell Count 12.32 K/mm3 (4.00-11.30)
[2022-07-28 05:54] LABS: Bun/Creatinine Ratio 15.8 (12.0-20.0); Calcium, Blood 8.3 mg/dL (8.5-10.1); Creatinine, Blood 1.14 mg/dL (0.60-1.20); Potassium, Blood 3.1 mmol/L (3.5-5.5)
--- NOTE | 2022-07-28 11:25 | NUR ---
PT DAUGHTER CALLED FOR UPDATE, GAVE UPDATE INFO ON PT/ST AND DR ORDERS AT THIS TIME.
--- NOTE | 2022-07-28 17:53 | NUR ---
SHIFT SUMMARY- VSS. PT WORKED WITH PT TODAY. MENTATION ALERT AT TIMES DURING DAY. 2 SMALL BM'S IN PULLUP, DARK BROWN LIQUID. PT BEDFAST AND RESTING MOST OF DAY. FAMILY AT BEDSIDE AROUND NOON. APPLIED MEPOLIX TO SACRAL AREA, SLIGHT REDNESS WITH BLANCHING. CALL LIGHT IN REACH, SIDE RAILS UP.
--- NOTE | 2022-07-29 04:51 | NUR ---
NIGHTSHIFT SUMMARY Patient resting comfortable all night, respirations even/nonlabored. Arouses easily to voice. Vanco ABX given PO, w/ applesauce. 1 loose/mucus stool noted this shift. Patient incontinent of B/B. Weak cough, sounds congested, RT came and administred PRN Albuterol. Vitals stable. Will monitor.
[2022-07-29 05:49] LABS: BASOPHILS ABSOLUTE AUTO 0.05 K/mm3 (0.00-0.23); BASOPHILS PERCENT AUTO 0 % (0-2); EOSINOPHILS ABSOLUTE AUTO 0.17 K/mm3 (0.00-0.68); EOSINOPHILS PERCENT AUTO 2 % (0-6); Hematocrit 36.1 % (37.0-53.0); Hemoglobin 11.6 g/dL (13.5-17.5); IMMATURE GRAN ABSOLUTE AUTO 0.12 K/mm3 (0.00-0.10); IMMATURE GRAN PERCENT AUTO 1 % (0-1); LYMPHOCYTES ABSOLUTE AUTO 2.41 K/mm3 (0.84-5.20); LYMPHOCYTES PERCENT AUTO 21 % (21-46); MONOCYTES ABSOLUTE AUTO 1.17 K/mm3 (0.16-1.47); MONOCYTES PERCENT AUTO 10 % (4-13); Mean Corpuscular HGB 29.8 pg (26.0-34.0); Mean Corpuscular HGB Conc 32.1 g/dL (31.5-36.5); Mean Corpuscular Volume 93 fL (80-100); Mean Platelet Volume 11.4 fL (9.1-12.4); NEUTROPHILS ABSOLUTE AUTO 7.65 K/mm3 (1.96-9.15); NEUTROPHILS PERCENT AUTO 66 % (41-73); Platelet Count 269 K/mm3 (150-400); RDW Coefficient Variation 13.8 % (11.7-14.2); RDW Standard Deviation 46.8 fL (35.1-46.3); Red Blood Cell Count 3.89 M/mm3 (4.30-5.90); White Blood Cell Count 11.57 K/mm3 (4.00-11.30)
[2022-07-29 06:27] LABS: Bun/Creatinine Ratio 15.5 (12.0-20.0); Calcium, Blood 8.8 mg/dL (8.5-10.1); Creatinine, Blood 1.1 mg/dL (0.60-1.20); Potassium, Blood 3.2 mmol/L (3.5-5.5)
--- NOTE | 2022-07-29 12:58 | NUR ---
SPOKE WITH DAUGHTER GAVE UPDATE. STATED SHE WOULD VISIT TOMORROW. PT RESTING NOW. WILL CONTINUE TO MONITOR.
--- NOTE | 2022-07-29 17:47 | NUR ---
shift summary- vss. gave meds with applesauce. pt still npo until reeval saturday from . pt has moment of confusion and irritation at times. no diarrhea noted this shift. pt did not get up to ambulate as pt seemed confused most of shift. cough raspy and unproductive. call light in reach, side rails up, and bed alarm on.
--- NOTE | 2022-07-30 06:32 | NUR ---
NIGHTSHIFT SUMMARY No acute changes to patient status during the night. No loose/mucus stools this shift. Patient incontinent of urine only. PO Vanco administred, meds given with applesauce. No issues swallowing. Patient OOB once to use commode, 2xSBA with gaitbelt FWW. Vitals stable.
--- NOTE | 2022-07-30 16:57 | NUR ---
PATIENT IS ALERT AND ORIENTED TO SELF, DAUGHTER AND FOLLOWING DIRECTIONS. PATIENT IS 1PA WITH FWW AND GAITBELT. PATIENT SHOWERED TODAY. HIS DAUGHTER VISITED TODAY. PATIENT P[ASSED HIS SWALLOW EVAL THIS MORNING AND WAS CHANGED TO A MECHANICAL SOFT DIET AND HE IS TOLERATING THAT WELL. PLAN TO DISCHARGE TOMORROW TO [facility]. ONE SMALL MUCOUSY BOWEL MOVEMENT THIS MORNING. WILL CONTINUE TO MONITOR
--- NOTE | 2022-07-31 04:54 | NUR ---
NIGHTSHIFT SUMMARY No acute changes to patient status this shift, plan is to discharge in AM. Patient alert, pleasant & cooperative with cares. Vitals stable, saturations stable on RA. Continuous to have wet/productive cough, rales noted on auscultation. Vanco ABX administred PO, no difficulty swallowing meds. Will continue to monitor.
[2022-07-31 11:00] LABS: SARS-Cov-2 (COVID-19) PCR, MMC NEGATIVE (NEGATIVE)
--- NOTE | 2022-07-31 13:20 | NUR ---
ATTEMPTED TO CALL DA[facility]TER [facility], VOICE MAIL LEFT.
[2022-07-31] MEDS ORDERED: VISBIOME 112.51 EACH PO (13:24)
[2022-07-31] MEDS ORDERED: VANCOCIN HCL250 MG PO (13:24)
--- NOTE | 2022-07-31 13:47 | NUR ---
PT REPORT CALLED TO [facility], DAUGHTER RETURNED PHONE CALL-NOTIFIED OF TRANSPORT, AWAITING TRANSPORT @ THIS TIME-SCHEDULED FOR 1400.
== END 2022-07-31 14:11 | disposition home or self-care (01) | DRG 871 ==
LOC: ER 15:05 → MEDS 18:58
PROVIDERS: Emergency Medicine; Internal Medicine; Student in an Organized Health Care Education/Training Program; ADMIT Internal Medicine
DX: A41.9 Sepsis, unspecified organism (principal); G93.41 Metabolic encephalopathy; F02.818 Dementia in other diseases classified elsewhere, unspecified severity, with other behavioral disturbance; I48.20 Chronic atrial fibrillation, unspecified; I48.92 Unspecified atrial flutter; A04.72 Enterocolitis due to Clostridium difficile, not specified as recurrent; N17.9 Acute kidney failure, unspecified; G30.9 Alzheimer's disease, unspecified; Z20.822 Contact with and (suspected) exposure to COVID-19; N40.0 Benign prostatic hyperplasia without lower urinary tract symptoms; I25.10 Atherosclerotic heart disease of native coronary artery without angina pectoris; F32.A Depression, unspecified; Z66 Do not resuscitate; J44.9 Chronic obstructive pulmonary disease, unspecified; R13.10 Dysphagia, unspecified; G47.33 Obstructive sleep apnea (adult) (pediatric); K59.00 Constipation, unspecified; E78.5 Hyperlipidemia, unspecified; M10.9 Gout, unspecified; I12.9 Hypertensive chronic kidney disease with stage 1 through stage 4 chronic kidney disease, or unspecified chronic kidney disease; N18.30 Chronic kidney disease, stage 3 unspecified; K21.9 Gastro-esophageal reflux disease without esophagitis; F03.90 Unspecified dementia, unspecified severity, without behavioral disturbance, psychotic disturbance, mood disturbance, and anxiety; Z88.0 Allergy status to penicillin; Z79.82 Long term (current) use of aspirin; Z79.899 Other long term (current) drug therapy; Z79.01 Long term (current) use of anticoagulants; Z95.1 Presence of aortocoronary bypass graft; Z98.890 Other specified postprocedural states; Z95.5 Presence of coronary angioplasty implant and graft; Z87.891 Personal history of nicotine dependence
CPT/HCPCS: 0241U; 36415; 70450; 71045; 74018; 80048; 80053; 81001; 82803; 83605; 84145; 85025; 85027; 87040; 87086; 87324; 87507; 92526; 92610; 93005; 93010; 94640; 94664; 94760; 96361; 96365; 96366; 96375; 97116; 97162; 97165; 97530; 97535; 99285-25; A9270; J0456; J1650; J2185; J3370; J7030; J7050; U0004

== ENCOUNTER 2022-08-01 17:40 | Emergency (ER) | payer MEDICARE ==
[~2022-08-01] VITALS: Ht 172.7 cm; Wt 74.8 kg
[~2022-08-01 17:40] MED LIST changes: +ACET325 PO; +Celexa20 MG PO; +DOCUZEN 8.6-501 EACH PO; +DULCOLAX400 MG/5 M PO; +Flomax0.4 MG PO; +LOPE2C PO; +NYSTATIN15 GM TOP; +VANCOCIN HCL250 MG PO; +VISBIOME 112.51 EACH PO; +Vitamin D1000 UNI1 PO; +[UNRECOGNIZED DRUG - OTHER] TOP
[2022-08-01 21:18] LABS: International Normalized Ratio 1.05
== END 2022-08-01 22:36 | disposition home or self-care (01) ==
LOC: ER 17:40
PROVIDERS: Student in an Organized Health Care Education/Training Program
DX: S00.03XA Contusion of scalp, initial encounter (principal); W18.30XA Fall on same level, unspecified, initial encounter; F03.90 Unspecified dementia, unspecified severity, without behavioral disturbance, psychotic disturbance, mood disturbance, and anxiety; J45.909 Unspecified asthma, uncomplicated; I48.91 Unspecified atrial fibrillation; J44.9 Chronic obstructive pulmonary disease, unspecified; E78.5 Hyperlipidemia, unspecified; I12.9 Hypertensive chronic kidney disease with stage 1 through stage 4 chronic kidney disease, or unspecified chronic kidney disease; N18.30 Chronic kidney disease, stage 3 unspecified; Z91.81 History of falling; Z88.0 Allergy status to penicillin; Z79.899 Other long term (current) drug therapy; Z87.891 Personal history of nicotine dependence
CPT/HCPCS: 70450; 72125; 85610; 93005; 93010; 99284-25

== ENCOUNTER → 2022-10-03 | Outpatient (CLI) | payer MEDICARE ==
[2022-10-03 12:56] LABS: Appearance, Urine Clear (Clear); Bilirubin, Urine Neg (Neg); Blood, Urine Neg (Neg); Color, Urine Yellow (P-Yellow); Glucose Qualitative, Urine Neg (Neg); Ketones, Urine Neg (Neg); Leukocyte Esterase, Urine Neg (Neg); Nitrite, Urine Neg (Neg); Protein, Urine 1+ (Neg); Urobilinogen, Urine NORM (Normal)
== END | disposition home or self-care (01) ==
LOC: LAB 07:00 → LAB SHORT 07:00
PROVIDERS: Internal Medicine
DX: N39.0 Urinary tract infection, site not specified (principal)
CPT/HCPCS: 87077; 87086; 87186